=== PATIENT | male | born 1945 | race Caucasian/White ===

== ENCOUNTER 2022-09-19 07:18 | Observation (INO) | payer MEDICARE, BC ==
[2022-09-19] MEDS ORDERED: NALOXONE 0.4 MG/ML 1 ML VIAL IV PRN (09:54)
--- NOTE | 2022-09-19 09:54 | ED ---
Seizure HPI - General Chief Complaint: Seizure Stated Complaint: Seizure Time Seen by Provider: 09/19/22 07:22 Source: EMS Mode of arrival: EMS Limitations: no limitations - History of Present Illness Initial Comments: Patient presents to the emergency department after reported seizure last night. He was seen at another hospital. His workup was unremarkable. He was sent here for a neurology evaluation. Patient currently denies any chest or belly or back pain. He has no nausea or vomiting. He has no lightheadedness or dizziness. - Related Data Allergies Allergy/AdvReac Type Severity Reaction Status Date / Time No Known Allergies Allergy Verified 09/19/22 07:31 Review of Systems ROS Statement: Those systems with pertinent positive or pertinent negative responses have been documented in the HPI. ROS Other: All systems not noted in ROS Statement are negative. Past Medical History Past Medical History: Prostate Disorder History of Any Multi-Drug Resistant Organisms: None Reported Past Surgical History: Orthopedic Surgery Past Psychological History: No Psychological Hx Reported Smoking Status: Former smoker Past Alcohol Use History: Occasional Past Drug Use History: None Reported General Exam Limitations: no limitations General appearance: alert, in no apparent distress Head exam: Present: atraumatic, normocephalic, normal inspection Eye exam: Present: normal appearance, PERRL, EOMI. Absent: scleral icterus, conjunctival injection, periorbital swelling ENT exam: Present: normal exam, mucous membranes moist Neck exam: Present: normal inspection. Absent: tenderness, meningismus, lymphadenopathy Respiratory exam: Present: normal lung sounds bilaterally. Absent: respiratory distress, wheezes, rales, rhonchi, stridor Cardiovascular Exam: Present: regular rate, normal rhythm, normal heart sounds. Absent: systolic murmur, diastolic murmur, rubs, gallop, clicks GI/Abdominal exam: Present: soft, normal bowel sounds. Absent: distended, tenderness, guarding, rebound, rigid Extremities exam: Present: normal inspection, full ROM, normal capillary refill. Absent: tenderness, pedal edema, joint swelling, calf tenderness Back exam: Present: normal inspection Neurological exam: Present: alert, oriented X3, CN II-XII intact Psychiatric exam: Present: normal affect, normal mood Skin exam: Present: warm, dry, intact, normal color. Absent: rash Course Vital Signs 09/19/22 07:25 Temperature 97.6 F Pulse Rate 66 Respiratory 18 Rate Blood Pressure 138/81 O2 Sat by Pulse 95 Oximetry Medical Decision Making - Medical Decision Making Patient presents after a seizure at another facility. I reviewed the external electronic medical records from the other facility which show the patient had normal labs and a normal head CT. I had a discussion regarding the patient with neurology. I reviewed the labs and the outside facility which were all normal. Patient has remained symptom-free in the emergency department. Patient will be admitted for observation. Was pt. sent in by a medical professional or institution (TERRANCE [employer], BLUE LINE OPERATOR, urgent care, hospital, or custodial...) When possible be specific @ -[facility] Did you speak to anyone other than the patient for history (EMS, parent, family, police, friend...)? What history was obtained from this source @ -Patient's Did you review nursing and triage notes (agree or disagree)? Why? @ -[I reviewed and agree with nursing and triage notes] Were old charts reviewed (outside hosp., previous admission, EMS record, old EKG, old radiological studies, urgent care reports/EKG's, custodial records)? Report findings @ -I reviewed the labs and imaging from the outside hospital. Differential Diagnosis (chest pain, altered mental status, abdominal pain women, abdominal pain men, vaginal bleeding, weakness, fever, dyspnea, syncope, headache, dizziness, GI bleed, back pain, seizure, CVA, palpatations, mental health)? @ -[not applicable] EKG interpreted by me (3pts min.). @ -[As above] X-rays interpreted by me (1pt min.). @ -[None done] CT interpreted by me (1pt min.). @ -[None done] U/S interpreted by me (1pt. min.). @ -[None done] What testing was considered but not performed or refused? (CT, X-rays, U/S, labs)? Why? @ -[None] What meds were considered but not given or refused? Why? @ -[None] Did you discuss the management of the patient with other professionals (professionals i.e. TERRANCE Bang, BLUE LINE OPERATOR, lab, RT, psych nurse, child protective services social worker, chief console operator, teacher, court collections officer, caseworker)? Give summary @ -[No] Was smoking cessation discussed for >3mins.? @ -[No] Was critical care preformed (if so, how long)? @ -[No] Were there social determinants of health that impacted care today? How? (Homelessness, low income, unemployed, alcoholism, drug addiction, transportation, low edu. Level, literacy, decrease access to med. care, retirement, rehab)? @ -[No] Was there de-escalation of care discussed even if they declined (Discuss DNR or withdrawal of care, Hospice)? DNR status @ -[No] What co-morbidities impacted this encounter? (DM, HTN, Smoking, COPD, CAD, Cancer, CVA, ARF, Chemo, Hep., AIDS, mental health diagnosis, sleep apnea, morbid obesity)? @ -[None] Was patient admitted / discharged? Hospital course, mention meds given and route, prescriptions, significant lab abnormalities, going to OR and other pertinent info. @ -Patient has remained symptom-free in the emergency department. He will be admitted to the hospital for observation. Undiagnosed new problem with uncertain prognosis? @ -[No] Drug Therapy requiring intensive monitoring for toxicity (Heparin, Nitro, Insulin, Cardizem)? @ -[No] Were any procedures done? @ -[No] Diagnosis/symptom? @ -[default] Acute, or Chronic, or Acute on Chronic? @ -[default] Uncomplicated (without systemic symptoms) or Complicated (systemic symptoms)? @ -[default] Side effects of treatment? @ -[No] Exacerbation, Progression, or Severe Exacerbation? @ -[No] Poses a threat to life or bodily function? How? (Chest pain, USA, NM, pneumonia, PE, COPD, DKA, ARF, appy, cholecystitis, CVA, Diverticulitis, Homicidal, Suicidal, threat to staff... and all critical care pts) @ -[No] Disposition Clinical Impression: New onset seizure Disposition: ADMITTED IP TO THIS HOSP Instructions (If sedation given, give patient instructions): Seizure/Epilepsy Discharge Instructions & Follow-Up Is patient prescribed a controlled substance at d/c from ED?: No Referrals: Garret Ferrara NPC [Family Provider] - 1-2 days
--- NOTE | 2022-09-19 12:37 | P.CNNES ---
History of Present Illness Consult date: 09/19/22 Requesting physician: Serafin Garcia Reason for Consult: seizure History of Present Illness: This is a 76-year-old gentleman who was transferred from [facility] to our emergency department because of the seizure-like activity. History is obtained predominantly from the patient's was at bedside. According to the she stated that around 2 AM today she woke up and from the abnormal noises of her was sleeping next to her. Then she noticed that he was shaken throughout all extremity and the episode lasted for 30 seconds to 1 minute. She did not notice any foaming around the mouth. She did notice that the some bleeding is coming out of his mouth. After the episodes he was confused and it took a prolonged period of time for him to regain consciousness. She denied that he had any urinary or bowel incontinence. No prior history of seizures. According to the patient he denies of any headache but he feels a little bit off. Denies of any focal weakness, numbness, any visual disturbance. She denies of any fevers. No family history of seizures. Denies any history of stroke. The he socially drinks alcohol. No further seizures since the episode earlier today. It seems that the patient yesterday had a few episode of feeling off but denies any passing episodes in the episodes were very brief but denies any passing out episode urinary or bowel incontinence. At outside facility is seems the patient had the CT of the head which was unremarkable it's reported. Also had lab work CBC as well as comprehensive metabolic panel and the sugar and electrolytes was within known normal limits and did not appear that as sodium, calcium or other electrolyte provoked a seizure. No leukocytosis. No reactive CBC or chemistry. Review of Systems Review of system: The 12 point system was reviewed and apparent positive and negative per HPI. Past Medical History Past Medical History: Prostate Disorder History of Any Multi-Drug Resistant Organisms: None Reported Past Surgical History: Orthopedic Surgery Past Psychological History: No Psychological Hx Reported Smoking Status: Former smoker Past Alcohol Use History: Occasional Past Drug Use History: None Reported Medications and Allergies Home Medications Medication Instructions Recorded Confirmed Type Atorvastatin [Lipitor] 40 mg PO DAILY 09/19/22 09/19/22 History [place]-3/Dha/Epa/Fish Oil [Fish Oil 1 cap PO BID 09/19/22 09/19/22 History 1,000 mg Softgel] Tamsulosin [Flomax] 0.4 mg PO DAILY 09/19/22 09/19/22 History Vit C/E/Zn/Coppr/Lutein/Zeaxan 1 cap PO BID 09/19/22 09/19/22 History [Preservision Areds 2 Softgel] flaxseed oiL [[place]-3 Flaxseed Oil] 1,000 mg PO DAILY 09/19/22 09/19/22 History Allergies Allergy/AdvReac Type Severity Reaction Status Date / Time No Known Allergies Allergy Verified 09/19/22 10:21 Physical Examination - Vital Signs Vital Signs: Vital Signs Temp Pulse Resp BP Pulse Ox 09/19/22 07:25 97.6 F 66 18 138/81 95 Intake and Output 09/18/22 09/19/22 09/19/22 22:59 06:59 14:59 Other: Weight 81.647 kg GENERAL: The patient is lying in bed and is not in acute distress. CHEST: The heart rate is regular rate rhythm. No murmurs to auscultation. LUNG: Clear to auscultation bilaterally no wheezing noted throughout. Not labored breathing. ABDOMEN/GI: Bowel sounds present in all 4 quadrants. No tenderness to palpation throughout. NEUROLOGICAL: Higher mental function: The patient is awake, alert, oriented to self, place and time. Patient is following commands. No aphasia and no neglect. Cranial nerves: The pupils are round, equal and reactive to light and accommodation. Visual au are full to confrontation throughout. Extraocular movement is intact no nystagmus is noted. Facial sensation is normal to touch throughout. The facial strength is normal throughout. Hearing is normal bilaterally to hand rub. Tongue is midline and moved [id number] without any difficulty. No dysarthria is noted. Shoulder shrug is normal bilaterally. Motor: Gait is normal. The strength is 5 over 5 throughout. Normal tone and bulk. Cerebellum: Normal finger to nose bilaterally. Sensation: Sensation is normal to touch throughout. Reflexes (right/left): 2+ throughout. Plantars are normal bilaterally. Assessment and Plan Assessment: New onset seizure (had seizure-like activity 30 seconds to 1 minutes with post- ictal confusion). Plan: MRI Brain w/ and w/o and EEG is ordered by ED team and is pending. I will not start the patient on antiepileptic drug unless imaging and MRI reveal other reason to start antiepiletic drug. Also patient had one clear seizure for now at home. Every 4 hours neuro checks Placed on seizure precautions seizure pads Per the [facility] because of the seizure, patient avoid driving for 6 month until Z seizure-free, avoid height, avoid swimming unassisted or using heavy machinery. We'll defer the rest of the medical management to primary team Plan discussed with the patient and his was at bedside as well as a son. Thank you for consultation Time with Patient: Greater than 30
--- NOTE | 2022-09-19 13:31 | MR ---
EXAMINATION TYPE: MR brain wo/w con DATE OF EXAM: 09/19/2022 1:11 PM CLINICAL INDICATION:Male, 76 years old with history of new seizure; COMPARISON: None TECHNIQUE: Multi planar, multi sequence imaging was performed through the brain including: T1, T2, In version recovery, susceptibility weighted imaging and gradient echo imaging and Diffusion weighted im aging. The patient was then given intravenous contrast and multi planar, T1 fat-saturation images wer e obtained. IV Contrast: 8ml cc Gadavist FINDINGS: Left frontal lobe serpiginous vessels coalesce near the skull vertex in the frontal lobe consistent w ith developmental venous anomaly. The ventricular system, basal cisterns appear unremarkable. Diffusion-weighted imaging shows no evide nce of restricted diffusion to suggest acute/subacute infarct. Intracranial arterial flow voids are m aintained. Midline structures show no abnormality. Scattered foci of high T2 signal intensity are see n within the periventricular white matter. After administration of gadolinium, no abnormal enhancemen t is seen. The bone marrow signal is within normal limits. Paranasal sinuses and mastoid air cells: Mild scattered paranasal sinus disease. Visualized orbits: Orbital contents are intact. IMPRESSION: 1. Left frontal lobe developmental venous anomaly. 2. No evidence of intracranial mass, acute/subacute infarct, or abnormal enhancement. 3. Nonspecific white matter changes, likely related to small vessel ischemic disease
[2022-09-19] MEDS ORDERED: ALPRAZolam 0.25 MG TAB PO PRN (14:08)
[2022-09-19] MEDS ORDERED: MAG HYDROX/AL HYDROX/SIMETH 30 ML CUP PO PRN (14:08)
[2022-09-19] MEDS ORDERED: MELATONIN 3 MG TABLET PO PRN (14:08)
[2022-09-19] MEDS ORDERED: ONDANSETRON 4 MG/2 ML VIAL IVP PRN (14:08)
[2022-09-19] MEDS ORDERED: LACTULOSE 20 GM/30 ML CUP PO PRN (14:08)
[2022-09-19] MEDS ORDERED: ACETAMINOPHEN TAB 325 MG TAB PO PRN (14:08)
[2022-09-19] MEDS: ENOXAPARIN 40 MG/0.4 ML SYRINGE SQ SCH (14:30)
--- NOTE | 2022-09-19 19:38 | P.HPIM ---
History of Present Illness H&P Date: 09/19/22 Chief Complaint: New-onset seizure This is a pleasant 76-year-old patient who follows with Dr. Keith Ferrara. History is obtained by the at the bedside. Chronic stable medical conditions include BPH, hyperlipidemia, ostomy that is. Patient other active. Patient was initially brought in from home to [facility]. There are in bed when patient started shaking tremors altered mentation and bit his tongue. Last for about 30 seconds. The called EMS. Patient was taken to the ER at [facility]. Computed tomography scan of the head checks x-ray alcohol level etc. were all negative. Patient was transferred here for neurological workup. Patient was post ictal at [facility]. Tired this morning. No history of alcoholism. No history of head injury or prior seizure activity. Review of systems: GEN.: Tired EYES: None HEENT: None NECK: None RESPIRATORY: None CARDIOVASCULAR: None GASTROINTESTINAL: None GENITOURINARY: None MUSCULOSKELETAL: Some joint pains LYMPHATICS: None HEMATOLOGICAL: None PSYCHIATRY: None NEUROLOGICAL: As above Past medical history to include: BPH, hyperlipidemia, osteoarthritis Social history: . 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 Former smoker. Alcohol occasionally. Physical examination: VITAL SIGNS: 97.6, 50, 18, 145/90, 99% room air GENERAL: BMI 26.6, laying in bed comfortable. EYES: Pupils equal. Conjunctiva normal. HEENT: External appearance of nose and ears normal, oral cavity grossly normal. NECK: JVD not raised; masses not palpable. HEART: First and second heart sounds are normal; no edema. LUNGS: Respiratory rate normal; clear to auscultation. ABDOMEN: Soft, nontender, liver spleen not palpable, no masses palpable. PSYCH: Alert and oriented x3; mood and affect normal. MUSCULOSKELETAL:No Clubbing/cyanosis;muscles-grossly intact. Evidence of OA NEUROLOGICAL: Cranial nerves grossly intact; no facial asymmetry, power and sensation grossly intact. LYMPHATICS: No lymph nodes palpable in the axilla and neck INVESTIGATIONS, reviewed in the clinical context: Lab work from [facility]: White count 8.6 hemoglobin 13.4 platelets 293 sodium 142 potassium 4.1 BUN 24 creatinine 0.9 Computed tomography scan of the head negative Chest x-ray negative Alcohol less than 10, LFTs normal, UA negative Influenza type A/diabetes/RSV/COVID-19: Not detected Assessment and plan: -New onset of generalized tonic-clonic seizure in a patient though prior history of head injury, no prior seizure or precipitating reason. Neuro checks. EEG. MRI of the brain. Neurology consulted. -BPH Flomax -Hyperlipidemia Lipitor -Primary osteoarthritis Tylenol when necessary -Full code Care was discussed with the patient. EEG. MRI. Seizure precautions. Resume home medications. Past Medical History Past Medical History: Prostate Disorder History of Any Multi-Drug Resistant Organisms: None Reported Past Surgical History: Orthopedic Surgery Past Psychological History: No Psychological Hx Reported Smoking Status: Former smoker Past Alcohol Use History: Occasional Past Drug Use History: None Reported Medications and Allergies Home Medications Medication Instructions Recorded Confirmed Type Atorvastatin [Lipitor] 40 mg PO DAILY 09/19/22 09/19/22 History [place]-3/Dha/Epa/Fish Oil [Fish Oil 1 cap PO BID 09/19/22 09/19/22 History 1,000 mg Softgel] Tamsulosin [Flomax] 0.4 mg PO DAILY 09/19/22 09/19/22 History Vit C/E/Zn/Coppr/Lutein/Zeaxan 1 cap PO BID 09/19/22 09/19/22 History [Preservision Areds 2 Softgel] flaxseed oiL [[place]-3 Flaxseed Oil] 1,000 mg PO DAILY 09/19/22 09/19/22 History Allergies Allergy/AdvReac Type Severity Reaction Status Date / Time No Known Allergies Allergy Verified 09/19/22 10:21 Physical Exam Vitals: Vital Signs Temp Pulse Resp BP Pulse Ox 09/19/22 07:25 97.6 F 66 18 138/81 95 Intake and Output 09/18/22 09/19/22 09/19/22 22:59 06:59 14:59 Other: Weight 81.647 kg
[2022-09-19] MEDS: VIT A,C & E-LUTEIN-MINERALS 1 EACH TAB PO SCH (20:06)
--- NOTE | 2022-09-19 22:32 | EEG ---
ELECTROENCEPHALOGRAM REPORT CLINICAL HISTORY: This is a 76-year-old gentleman with new onset seizure-like activity witnessed by at home. The video EEG is obtained to evaluate for seizure epileptiform activity. RELEVANT MEDICATIONS: The patient is not on any antiepileptic drug. EEG TYPE: A routine 21-channel EEG is performed with video using the 10/20 electrode placement system. DESCRIPTION: Wakefulness and drowsiness are obtained. During awake state, the posterior-dominant rhythm consists of [id number] voltage of 8 to 8.5 hertz activity that is well modulated, well sustained. There is no physiological stage 2 sleep architecture seen. There is no focal slowing. Interictal and ictal is none. ACTIVATION PROCEDURE: Photic stimulation did not evoke a posterior driving response. There is no abnormality during the photic stimulation. Hyperventilation is not performed. CLINICAL INTERPRETATION: This is a normal routine EEG. There is no focal slowing, epileptiform discharge, or seizure on the EEG. A normal routine EEG does not rule out underlying epilepsy. Clinical correlation is recommended. MMSANJANA / CHUYITAN: [id number] /
[2022-09-20] MEDS ORDERED: ATORVASTATIN 40 MG TAB PO SCH (09:00)
[2022-09-20] MEDS ORDERED: TAMSULOSIN 0.4 MG CAP.ER.24H PO SCH (09:00)
[2022-09-20] MEDS: VIT A,C & E-LUTEIN-MINERALS 1 EACH TAB PO SCH (09:56)
[2022-09-20] MEDS: ENOXAPARIN 40 MG/0.4 ML SYRINGE SQ SCH (09:57)
[2022-09-20 10:09] LABS: ALT 20 U/L (4-49); AST 29 U/L (17-59); African American GFR (CKD) >90 (>60 ml/min/1.73 sqM); Albumin 3.6 g/dL (3.5-5.0); Albumin/Globulin Ratio 1.3; Alkaline Phosphatase 81 U/L (38-126); Anion Gap 6 mmol/L; Blood Urea Nitrogen 17 mg/dL (9-20); Calcium 8.5 mg/dL (8.4-10.2); Carbon Dioxide 25 mmol/L (22-30); Chloride 109 mmol/L (98-107); Globulin 2.7 g/dL; Glucose 113 mg/dL (74-99); Non-African American GFR(CKD) 84 (>60 ml/min/1.73 sqM); Potassium 3.8 mmol/L (3.5-5.1); Sodium 140 mmol/L (137-145); Total Protein 6.3 g/dL (6.3-8.2)
[2022-09-20 10:14] VITALS: BP 126/68; PULSE 68; RESP 16; TEMP 98
[2022-09-20] MEDS ORDERED: levETIRAcetam 500 MG TAB PO SCH (10:15)
--- NOTE | 2022-09-20 14:17 | CT ---
EXAMINATION TYPE: CT angio head neck CT DLP: 1526.70 mGycm, Automated exposure control for dose reduction was used. DATE OF EXAM: 09/20/2022 2:05 PM COMPARISON: MR brain 09/19/2022. CLINICAL INDICATION:Male, 76 years old with history of seizure. Arterial/venous anomaly, seizure. A rterial/venous anomaly TECHNIQUE: Axially acquired helical CT angiogram of the head and neck was obtained with contrast. Axi al images are supplemented with 3D reconstructions which were post-processed at an independent [facility]st [facility]. NASCET criteria used. Contrast used:65 mL of Isovue 370 without and with IV Contrast, Oral contrast used: None. FINDINGS: CTA HEAD: No evidence of acute intracranial hemorrhage, mass effect, or midline shift. The ventricles, sulci, a nd cisterns are unremarkable. The visualized portions of the internal carotid arteries, middle cerebral arteries, anterior cerebral arteries, and posterior cerebral arteries are patent. The basilar and vertebral arteries are patent. Developmental venous normally within the left frontal lobe as seen on prior MRI. CTA NECK: Right Carotid System: The common carotid artery and external carotid artery are patent. The carotid bifurcation demonstrate s no evidence of hemodynamically significant stenosis. The remaining portions of the internal carotid artery demonstrate normal size without significant narrowing. Left Carotid System: The common carotid artery and external carotid artery are patent. The carotid bifurcation demonstrate s no evidence of hemodynamically significant stenosis. The remaining portions of the internal carotid artery demonstrate normal size without significant narrowing. Vertebral arteries are patent without evidence hemodynamically significant stenosis. There is a three-vessel aortic arch. The origins of the great vessels are patent. No evidence of hemo dynamically significant stenosis. Upper thorax: IMPRESSION: 1. No evidence of dissection of the cervical internal carotid arteries or vertebral arteries or any e vidence of significant stenosis at the carotid bifurcations. 2. No evidence of intracranial high-grade stenosis or intracranial aneurysm. 3. Left frontal lobe development of venous anomaly.
--- NOTE | 2022-09-20 15:16 | P.PN ---
Subjective Progress Note Date: 09/20/22 The patient is seen at bedside and he is accompanied with his feel like his dome better. No further seizure-like activity. Patient feels he is doing better and denies any headache any focal deficit. Objective - Vital Signs Vital signs: Vital Signs Temp 98.0 F 09/20/22 08:25 Pulse 68 09/20/22 08:25 Resp 16 09/20/22 08:25 BP 126/68 09/20/22 08:25 Pulse Ox 92 L 09/20/22 08:25 FiO2 Intake & Output 09/19/22 09/20/22 09/20/22 18:59 06:59 18:59 Intake Total 120 Balance 120 Weight 81.647 kg Intake: Oral 120 Other: # Voids 1 - Exam GENERAL: The patient is lying in bed and is not in acute distress. NEUROLOGICAL: Higher mental function: The patient is awake, alert, oriented to self, place and time. Patient is following commands. No aphasia and no neglect. Cranial nerves: The pupils are round, equal and reactive to light and accommodation. Visual au are full to confrontation throughout. Extraocular movement is intact no nystagmus is noted. Facial sensation is normal to touch throughout. The facial strength is normal throughout. Hearing is normal bilaterally to hand rub. Tongue is midline and moved [id number] without any difficulty. No dysarthria is noted. Shoulder shrug is normal bilaterally. Motor: The strength is 5 over 5 throughout. Normal tone and bulk. Cerebellum: Normal finger to nose bilaterally. Sensation: Sensation is normal to touch throughout. Reflexes (right/left): 2+ throughout. Plantars are normal bilaterally. SOME OF THE WORK-UP DURING THIS HOSPITAL VISIT CONSISTED OF: Routine EEG is normal. MRI the brain is reported as left frontal tlobe developmental venous anomaly. No evidence of intracranial mass, acute/subacute infarct or abnormal enh ancement. Nonspecific white matter changes likely related to small vessel ischemic disease. CT angiography of the head and neck is reported as no evidence of dissection of the cervical internal carotid artery or vertebral artery or any evidence of significant stenosis at the carotid bifurcation. No evidence of intracranial high-grade stenosis or intracranial aneurysm. Left frontal lobe development of venous anomaly. - Labs CBC & Chem 7: 09/20/22 09:45 Labs: Abnormal Lab Results - Last 24 Hours (Table) 01/19/23 Range/Units 09:45 Chloride 109 H (98-107) mmol/L Glucose 113 H (74-99) mg/dL Assessment and Plan Assessment: New onset seizure (had seizure-like activity 30 seconds to 1 minutes with post- ictal confusion). Left frontal developmental venous anomaly seen on CTA and MRI Brain Plan: Left frontal developmental venous anomaly seen on CTA and MRI Brain. I recommend patient to follow-up with neurosurgeon as outpatient within 1-2 weeks if possible. The patient family has requested that patient be started on antiepileptic drug as prophylaxis and he is in agreement and not wait for further seizures. I started him on Keppra 500mg 1 tab bid and notified them of side-effects of medication. Every 4 hours neuro checks Placed on seizure precautions seizure pads Per the [facility] because of the seizure, patient avoid driving for 6 month until Z seizure-free, avoid height, avoid swimming unassisted or using heavy machinery. We'll defer the rest of the medical management to primary team Upon discharge the patient needs to follow-up with a neurologist within 1-2 weeks Plan discussed with the patient and his as well nurse. No further neurological work-up. Time with Patient: Less than 30
--- NOTE | 2022-09-21 18:59 | P.DS ---
Providers Date of admission: 09/19/22 09:54 Expected date of discharge: 09/20/22 Attending physician: Baltazar Gaxiola Consults: 09/19/22 09:55 Consult Physician Routine Consulting Provider: Wilian Cates Consult Reason/Comments: seizure Do you want consulting provider notified?: Already Contacted Primary care physician: [facility] Course: Chief Complaint: New-onset seizure This is a pleasant 76-year-old patient who follows with Dr. Keith Ferrara. History is obtained by the at the bedside. Chronic stable medical conditions include BPH, hyperlipidemia, ostomy that is. Patient other active. Patient was initially brought in from home to [facility]. There are in bed when patient started shaking tremors altered mentation and bit his tongue. Last for about 30 seconds. The called EMS. Patient was taken to the ER at [facility]. Computed tomography scan of the head checks x-ray alcohol level etc. were all negative. Patient was transferred here for neurological workup. Patient was post ictal at [facility]. Tired this morning. No history of alcoholism. No history of head injury or prior seizure activity. 09/21/2022: Seizure care was discussed length with the patient has and family at the bedside. Questions answered. Also early discussed with Dr. Cates from urology. He has started the patient on Keppra. ED angiogram did show left frontal lobe developmental venous anomaly. No other abnormalities. Patient is to follow up with neurosurgery outpatient as per Dr. Cates from neurology. Questions answered. Seizure precautions discussed Discussion and discharge planning more than 35 minutes Past medical history to include: BPH, hyperlipidemia, osteoarthritis Social history: . 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 Former smoker. Alcohol occasionally. Physical examination: VITAL SIGNS: 98, 68, 8016, 1 26 x 68, 92% room air GENERAL: Comfortable EYES: Pupils equal. Conjunctiva normal. HEENT: External appearance of nose and ears normal, oral cavity grossly normal. NECK: JVD not raised; masses not palpable. HEART: First and second heart sounds are normal; no edema. LUNGS: Respiratory rate normal; clear to auscultation. ABDOMEN: Soft, nontender, liver spleen not palpable, no masses palpable. PSYCH: Alert and oriented x3; mood and affect normal. MUSCULOSKELETAL:No Clubbing/cyanosis;muscles-grossly intact. Evidence of OA INVESTIGATIONS, reviewed in the clinical context: CT angiogram of the brain. Left frontal lobe developmental venous anomaly. EEG: Negative for epilepsy activity Brain MRI: Left frontal lobe developmental venous anomaly. Lab work from [facility]: White count 8.6 hemoglobin 13.4 platelets 293 sodium 142 potassium 4.1 BUN 24 creatinine 0.9 Computed tomography scan of the head negative Chest x-ray negative Alcohol less than 10, LFTs normal, UA negative Influenza type A/diabetes/RSV/COVID-19: Not detected Assessment and plan: -New onset of generalized tonic-clonic seizure in a patient though prior history of head injury, no prior seizure or precipitating reason. Keppra 500 mg twice a day. Seizure precautions discussed. Follow-up with neurology outpatient. -Left frontal lobe developmental venous anomaly. Follow-up with neurosurgery outpatient. -BPH Flomax -Hyperlipidemia Lipitor -Primary osteoarthritis Tylenol when necessary -Full code Disposition: Home Plan - Discharge Summary Discharge Rx Participant: No New Discharge Prescriptions: New levETIRAcetam [Keppra] 500 mg PO Q12HR #60 tab Continue Atorvastatin [Lipitor] 40 mg PO DAILY Vit C/E/Zn/Coppr/Lutein/Zeaxan [Preservision Areds 2 Softgel] 1 cap PO BID Tamsulosin [Flomax] 0.4 mg PO DAILY [place]-3/Dha/Epa/Fish Oil [Fish Oil 1,000 mg Softgel] 1 cap PO BID No Action flaxseed oiL [[place]-3 Flaxseed Oil] 1,000 mg PO DAILY Discharge Medication List Atorvastatin [Lipitor] 40 mg PO DAILY 09/19/22 [History] [place]-3/Dha/Epa/Fish Oil [Fish Oil 1,000 mg Softgel] 1 cap PO BID 09/19/22 [History] Tamsulosin [Flomax] 0.4 mg PO DAILY 09/19/22 [History] Vit C/E/Zn/Coppr/Lutein/Zeaxan [Preservision Areds 2 Softgel] 1 cap PO BID 09/19/22 [History] flaxseed oiL [[place]-3 Flaxseed Oil] 1,000 mg PO DAILY 09/19/22 [History] levETIRAcetam [Keppra] 500 mg PO Q12HR #60 tab 09/20/22 [Rx] Follow up Appointment(s)/Referral(s): neuro-surgery, [Other] - 1 Week Garret Ferrara NPC [Family Provider] - 1-2 days Patient Instructions/Handouts: Seizure/Epilepsy Discharge Instructions & Follow-Up, New-Onset Seizure in Adults (DC) Activity/Diet/Wound Care/Special Instructions: seizure precaution-no driving till further notice Discharge Disposition: HOME SELF-CARE
== END 2022-09-20 16:47 | disposition home or self-care (01) ==
LOC: EC 07:18 → 6NMEDSUR 09:54
PROVIDERS: ADMIT Hospitalist; ATTEND Hospitalist
DX: G40.89 Other seizures (principal); Q28.3 Other malformations of cerebral vessels; N42.9 Disorder of prostate, unspecified; Z87.891 Personal history of nicotine dependence; N40.0 Benign prostatic hyperplasia without lower urinary tract symptoms; E78.5 Hyperlipidemia, unspecified; M19.91 Primary osteoarthritis, unspecified site; Z79.899 Other long term (current) drug therapy
CPT/HCPCS: 96372 ×2; 99285; 95816; 80053; 70496; 70498; 70553; G0378 ×2; J1650 ×2; Q9967; A9585

== ENCOUNTER 2024-03-16 11:03 | Inpatient (IN) | payer MEDICARE, BC ==
[2024-03-16] MEDS ORDERED: NITROGLYCERIN SL TABS 0.4 MG TAB SUBLINGUAL PRN (11:19)
[2024-03-16] MEDS: ASPIRIN 81 MG PO STA ×2 (11:30)
--- NOTE | 2024-03-16 11:30 | ED ---
Recheck HPI - General Chief Complaint: Chest Pain Stated Complaint: Chest pain Time Seen by Provider: 03/16/24 11:16 Source: patient, EMS, RN notes reviewed, old records reviewed Mode of arrival: EMS Limitations: no limitations - History of Present Illness Initial Comments: This 78-year-old male excepted in transfer from an outside facility for evaluati on regards to chest pain and shortness of breath weakness and not feeling well. Is excepted in transfer for chest pain observation MD Complaint: abnormal lab (Chest pain observation) -: days(s) Symptoms Since Prior Visit: no new symptoms Context: planned re-check Associated Symptoms: none - Related Data Home Medications Medication Instructions Recorded Confirmed Atorvastatin [Lipitor] 40 mg PO DAILY 09/19/22 09/19/22 [place]-3/Dha/Epa/Fish Oil [Fish Oil 1 cap PO BID 09/19/22 09/19/22 1,000 mg Softgel] Tamsulosin [Flomax] 0.4 mg PO DAILY 09/19/22 09/19/22 Vit C/E/Zn/Coppr/Lutein/Zeaxan 1 cap PO BID 09/19/22 09/19/22 [Preservision Areds 2 Softgel] flaxseed oiL [[place]-3 Flaxseed Oil] 1,000 mg PO DAILY 09/19/22 09/19/22 Previous Rx's Medication Instructions Recorded levETIRAcetam [Keppra] 500 mg PO Q12HR #60 tab 09/20/22 Allergies Allergy/AdvReac Type Severity Reaction Status Date / Time No Known Allergies Allergy Verified 03/16/24 11:12 Review of Systems ROS Statement: Those systems with pertinent positive or pertinent negative responses have been documented in the HPI. ROS Other: All systems not noted in ROS Statement are negative. Past Medical History Past Medical History: Prostate Disorder, Seizure Disorder History of Any Multi-Drug Resistant Organisms: None Reported Past Surgical History: Orthopedic Surgery Additional Past Surgical History / Comment(s): markers for macular degeneration Past Anesthesia/Blood Transfusion Reactions: No Reported Reaction Past Psychological History: No Psychological Hx Reported Smoking Status: Former smoker Past Alcohol Use History: Occasional Past Drug Use History: None Reported General Exam Limitations: no limitations General appearance: alert, in no apparent distress Head exam: Present: atraumatic, normocephalic, normal inspection Eye exam: Present: normal appearance, PERRL, EOMI. Absent: scleral icterus, conjunctival injection, periorbital swelling ENT exam: Present: normal exam, mucous membranes moist Neck exam: Present: normal inspection. Absent: tenderness, meningismus, lymphadenopathy Respiratory exam: Present: normal lung sounds bilaterally. Absent: respiratory distress, wheezes, rales, rhonchi, stridor Cardiovascular Exam: Present: regular rate, normal rhythm, normal heart sounds. Absent: systolic murmur, diastolic murmur, rubs, gallop, clicks GI/Abdominal exam: Present: soft, normal bowel sounds. Absent: distended, tenderness, guarding, rebound, rigid Extremities exam: Present: normal inspection, full ROM, normal capillary refill. Absent: tenderness, pedal edema, joint swelling, calf tenderness Back exam: Present: normal inspection Neurological exam: Present: alert, oriented X3, CN II-XII intact Psychiatric exam: Present: normal affect, normal mood Skin exam: Present: warm, dry, intact, normal color. Absent: rash Course Vital Signs 03/16/24 11:05 Temperature 97.6 F Pulse Rate 70 Respiratory 18 Rate Blood Pressure 136/72 O2 Sat by Pulse 96 Oximetry - Reevaluation(s) Reevaluation #1: 03/16/24 11:29 Medical records reviewed Reevaluation #2: 03/16/24 11:29 Patient symptoms unchanged Reevaluation #3: 03/16/24 11:29 Patient informed of results and questions answered Reevaluation #4: Was pt. sent in by a medical professional or institution (, PA, TOWN MANAGER, urgent care, hospital, or [facility]...) When possible be specific @ -no Did you speak to anyone other than the patient for history (EMS, parent, family, police, friend...)? What history was obtained from this source @ -no Did you review nursing and triage notes (agree or disagree)? Why? @ -agree Are old charts reviewed (outside hosp., previous admission, EMS record, old EKG, old radiological studies, urgent care reports/EKG's, [facility] records)? Report findings @ -yes Differential Diagnosis (chest pain, altered mental status, abdominal pain women, abdominal pain men, vaginal bleeding, weakness, fever, dyspnea, syncope, headache, dizziness, GI bleed, back pain, seizure, CVA, palpatations, mental health, musculoskeletal)? @ -prior EKG interpreted by me (3pts min.). @ -yes X-rays interpreted by me (1pt min.). @ -yes negative for acute disease CT interpreted by me (1pt min.). @ -no U/S interpreted by me (1pt. min.). @ -no What testing was considered but not performed or refused? (CT, X-rays, U/S, labs)? Why? @ -none What meds were considered but not given or refused? Why? @ -none Did you discuss the management of the patient with other professionals (professionals i.e. , PA, TOWN MANAGER, lab, RT, psych nurse, social group worker, black top paver operator, teacher, occupational health and safety officer, social work case manager)? Give summary @ -no Was smoking cessation discussed for >3mins.? @ -no Was critical care preformed (if so, how long)? @ -no Were there social determinants of health that impacted care today? How? (Homelessness, low income, unemployed, alcoholism, drug addiction, transportation, low edu. Level, literacy, decrease access to med. care, [facility], rehab)? @ -none Was there de-escalation of care discussed even if they declined (Discuss DNR or withdrawal of care, Hospice)? DNR status @ -no What co-morbidities impacted this encounter? (DM, HTN, Smoking, COPD, CAD, Cancer, CVA, ARF, Chemo, Hep., AIDS, mental health diagnosis, sleep apnea, morbid obesity)? @ -none Was patient admitted / discharged? Hospital course, mention meds given and route, prescriptions, significant lab abnormalities, going to OR and other pertinent info. @ - Undiagnosed new problem with uncertain prognosis? @ -no Drug Therapy requiring intensive monitoring for toxicity (Heparin, Nitro, Insulin, Cardizem)? @ -no Were any procedures done? @ -no Diagnosis/symptom? @ - Acute, or Chronic, or Acute on Chronic? @ -Acute Uncomplicated (without systemic symptoms) or Complicated (systemic symptoms)? @ -Complicated Side effects of treatment? @ -no Exacerbation, Progression, or Severe Exacerbation? @ -exacerbation Poses a threat to life or bodily function? How? (Chest pain, [place], [place], pneumonia, PE, COPD, DKA, ARF, appy, cholecystitis, CVA, Diverticulitis, Homicidal, Suicidal, threat to staff... and all critical care pts) @ -yes Reevaluation #5: Differential Chest Pain: Stable Angina, Unstable Angina, STEMI, NSTEMI Aortic Dissection, Pneumothorax, Musculoskeletal, Esophageal Spasm GERD, Cholecystitis, Pancreatitis, Zoster, this is not meant to be an all-inclusive list. - Consultations Consultation #1: With [facility] who agrees to admit this patient Medical Decision Making - Medical Decision Making 78 Male will be admitted for chest pain observation Disposition Clinical Impression: Chest pain Disposition: ADMITTED IP TO THIS HOSP Condition: Undetermined Is patient prescribed a controlled substance at d/c from ED?: No Referrals: Uche Casas MD [Primary Care Provider] - 1-2 days Time of Disposition: 11:30
[2024-03-16] MEDS: SODIUM CHLORIDE 0.9% 1,000 ML IV STA (11:42)
[2024-03-16] MEDS: MORPHINE SULFATE 4 MG/ML SYRINGE IV STA (11:43)
[2024-03-16] MEDS: NITROGLYCERIN OINT 1 INCH/GM PACKET TOPICAL STA (11:48)
[2024-03-16 12:18] LABS: INR 1.1 (<1.2); Partial Thromboplastin Time 37.3 sec (22.0-30.0); Prothrombin Time 11.7 sec (10.0-12.5)
[2024-03-16 12:20] LABS: Basophils % (A) 0 %; Eosinophils # (A) 0.1 k/uL (0-0.7); Eosinophils % (A) 0 %; HCT 41.1 % (39.0-53.0); HGB 13.6 gm/dL (13.0-17.5); Lymphocytes # (A) 0.6 k/uL (1.0-4.8); Lymphocytes % (A) 4 %; MCH 31.9 pg (25.0-35.0); MCHC 33.1 g/dL (31.0-37.0); MCV 96.3 fL (80.0-100.0); Mean Platelet Volume 7.9; Monocytes # (A) 0.5 k/uL (0-1.0); Monocytes % (A) 3 %; Neutrophils # (A) 13.4 k/uL (1.3-7.7); Neutrophils % (A) 92 %; Platelet Count 221 k/uL (150-450); RBC 4.27 m/uL (4.30-5.90); RDW 13.4 % (11.5-15.5); WBC 14.6 k/uL (3.8-10.6)
[2024-03-16 12:21] LABS: ALT 25 U/L (4-49); AST 36 U/L (17-59); African American GFR (CKD) >90 (>60 ml/min/1.73 sqM); Albumin 4.1 g/dL (3.5-5.0); Alkaline Phosphatase 90 U/L (38-126); Anion Gap 11 mmol/L; Blood Urea Nitrogen 18 mg/dL (9-20); Calcium 9.2 mg/dL (8.4-10.2); Carbon Dioxide 17 mmol/L (22-30); Chloride 110 mmol/L (98-107); Glucose 92 mg/dL (74-99); Magnesium 1.8 mg/dL (1.6-2.3); Non-African American GFR(CKD) >90 (>60 ml/min/1.73 sqM); Sodium 138 mmol/L (137-145); Total Bilirubin 1.3 mg/dL (0.2-1.3); Total Protein 6.8 g/dL (6.3-8.2)
[2024-03-16 12:29] LABS: NT-Pro-B-Type Natriuretic Pept 122 pg/mL
[2024-03-16] MEDS ORDERED: PANTOPRAZOLE 40 MG TABLET PO PRN (15:50)
[2024-03-16] MEDS: HEPARIN SOD,PORK IN 0.45% NACL 25,000 UNIT in 0.45% NACL 1 250ML.BAG IV SCH (16:53)
--- NOTE | 2024-03-16 17:09 | XR ---
EXAMINATION TYPE: XR chest 1V DATE OF EXAM: 03/16/2024 COMPARISON: NONE HISTORY: 78-year-old male difficulty in breathing, shortness of breath TECHNIQUE: Single frontal view of the chest is obtained. FINDINGS: The heart is borderline enlarged. Mild patchy bibasilar densities. No sizable pleural effu castro. IMPRESSION: heart size. Mild patchy bibasilar densities, probably atelectasis. Follow-up to exclude developing in filtrates if clinically indicated.
[2024-03-16] MEDS: MORPHINE SULFATE 4 MG/ML SYRINGE IV PRN (18:15)
[2024-03-16] MEDS: SERTRALINE 50 MG TAB PO SCH (21:55)
[2024-03-16] MEDS: levETIRAcetam 500 MG TAB PO SCH (21:55)
[2024-03-17 00:01] LABS: Appearance,Urine Clear (Clear); Bilirubin,Urine Negative (Negative); Blood,Urine Small (Negative); Color,Urine Light Yellow; Glucose,Urine (UA) Negative (Negative); Ketones,Urine Negative (Negative); Leukocyte Esterase,Urine Negative (Negative); Mucus,Urine Occasional /hpf; Nitrite,Urine Negative (Negative); PH, Urine 5.5 (5.0-8.0); Protein,Urine Negative (Negative); RBC,Urine 1 /hpf (0-5); Specific Gravity,Urine 1.017 (1.001-1.035); Urobilinogen,Urine <2.0 mg/dL (<2.0); WBC,Urine 3 /hpf (0-5)
--- NOTE | 2024-03-17 00:02 | P.HPIM ---
History of Present Illness H&P Date: 03/16/24 Chief Complaint: Chest pain Patient is a 78-year-old male with known history of seizure disorder, BPH, history of urinary retention, obstructive sleep apnea on CPAP, anxiety/d epression and prior history of smoking initially presented to [facility] due to complaints of chest pain. Patient states that he woke up this morning and felt mid retrosternal chest discomfort/pain and pressure like indigestion. [place] like burning and sharp pain. Patient also felt left shoulder pain and back pain is worse with shortness of breath. Denies any recent illnesses. No cough or sputum production. No fever no chills. Patient initially presented to [facility] where he had workup done including CBC BMP. Troponin x 1 negative. proBNP 66 and chest x-ray showed vascular congestion. Patient was given nitro sublingual followed by Nitropaste. Which seem to improve his symptoms. Initial EKG showed atrial fibrillation with controlled ventricular rate. Due to complaints of chest pain and shortness of breath patient was transferred to [facility] for further evaluation. He was also started on heparin drip at the facility. On admission chest x-ray showed cardiomegaly and mild patchy bibasilar densities possibly atelectasis. EKG showed sinus rhythm with intraventricular conduction delay. Laboratory test showed WBC 14.6 hemoglobin 13.6 and platelets 221, sodium 138 potassium 4.0 chloride 110 bicarb is 17 BUN 18 and creatinine 0.68 and blood sugar 92 liver enzymes are not elevated troponin x 3 negative proBNP 122 and albumin 4.1 Review of Systems Constitutional: Patient denies any fever or chills . No generalized weakness or weight loss. Abdomen: Patient denied nausea vomiting and diarrhea and abdominal pain. Cardiovascular: Patient denies any chest pain or short of breath no palpitations. Respiratory: patient denied any cough or sputum production. No shortness of breath Neurologic: Patient denied any numbness or tingling. no headache. Musculoskeletal: Patient denies any complaints of joint swelling or deformity. Skin: Negative Psychiatric: Negative Endocrine: No heat or cold intolerance. No recent weight gain. Genitourinary: No dysuria or hematuria. All other 14 point ROS negative except the above Past Medical History Past Medical History: Prostate Disorder, Seizure Disorder History of Any Multi-Drug Resistant Organisms: None Reported Past Surgical History: Orthopedic Surgery Additional Past Surgical History / Comment(s): markers for macular degeneration Past Anesthesia/Blood Transfusion Reactions: No Reported Reaction Past Psychological History: No Psychological Hx Reported Smoking Status: Former smoker Past Alcohol Use History: Occasional Past Drug Use History: None Reported Medications and Allergies Home Medications Medication Instructions Recorded Confirmed Type Atorvastatin [Lipitor] 40 mg PO DAILY 09/19/22 03/16/24 History Tamsulosin [Flomax] 0.4 mg PO DAILY 09/19/22 03/16/24 History Vit C/E/Zn/Coppr/Lutein/Zeaxan 1 cap PO BID 09/19/22 03/16/24 History [Preservision Areds 2 Softgel] Ascorbic Acid [Vitamin C] 1,000 mg PO HS 03/16/24 03/16/24 History Cholecalciferol (Vitamin D3) 50 mcg PO DAILY 03/16/24 03/16/24 History [Vitamin D3 (50 Mcg = 2000 Iu)] Flaxseed Oil 1,400 Mg 1,400 mg PO DAILY 03/16/24 03/16/24 History [place]-3/Dha/Epa/Fish Oil [Fish Oil 2 cap PO DAILY 03/16/24 03/16/24 History EC 1,200 mg Softgel] Omeprazole 20 mg PO DAILY PRN 03/16/24 03/16/24 History Pyridoxine HCl (Vitamin B6) 100 mg PO BID 03/16/24 03/16/24 History [Vitamin B-6] Sertraline HCl [Zoloft] 50 mg PO HS 03/16/24 03/16/24 History levETIRAcetam [Keppra] 500 mg PO BID 03/16/24 03/16/24 History Allergies Allergy/AdvReac Type Severity Reaction Status Date / Time No Known Allergies Allergy Verified 03/16/24 11:43 Physical Exam Vitals: Vital Signs Temp Pulse Resp BP Pulse Ox 03/16/24 14:21 61 16 112/60 94 L 03/16/24 12:41 74 18 121/69 97 03/16/24 11:05 97.6 F 70 18 136/72 96 Intake and Output 03/16/24 03/16/24 03/16/24 06:59 14:59 22:59 Other: Weight 82.554 kg PHYSICAL EXAMINATION: Patient is lying in the bed comfortably, no acute distress, awake alert and oriented.. HEENT: Normocephalic. Neck is supple. Pupils reactive. Nostrils clear. Oral cavity is moist. Neck reveals no JVD, carotid bruits, or thyromegaly. CHEST EXAMINATION: Trachea is central. Symmetrical expansion. Bibasilar diminished sounds otherwise lung au clear to auscultation and percussion. CARDIAC: Normal S1, S2 with no gallops. No murmurs ABDOMEN: Soft. Bowel sounds normal. No organomegaly. No abdominal bruits. Extremities: reveal no edema. No clubbing or cyanosis Neurologically awake, alert, oriented x3 with well-coordinated movements. No focal deficits noted Skin: No rash or skin lesions. Psychiatric: Coperative. Nonsuicidal Musculoskeletal: No joint swelling or deformity. Normal range of motion. Results CBC & Chem 7: 03/16/24 11:35 03/16/24 11:35 Labs: Abnormal Lab Results - Last 24 Hours (Table) 03/16/24 03/16/24 03/16/24 Range/Units 11:35 11:35 11:35 WBC 14.6 H (3.8-10.6) k/uL RBC 4.27 L (4.30-5.90) m/uL Neutrophils # 13.4 H (1.3-7.7) k/uL Lymphocytes # 0.6 L (1.0-4.8) k/uL APTT 37.3 H (22.0-30.0) sec Chloride 110 H (98-107) mmol/L Carbon Dioxide 17 L (22-30) mmol/L Thrombosis Risk Factor Assmnt - DVT/VTE Prophylaxis DVT/VTE Prophylaxis: Pharmacologic Prophylaxis ordered Assessment and Plan Assessment: New onset atrial fibrillation Atypical chest pain ruled out ACS. Seizure disorder on antiepileptic medications Hyperlipidemia BPH Obstructive sleep apnea on CPAP at home Prior history of smoking DVT prophylaxis patient is already on heparin drip Plan: Patient will be continued on telemonitoring. Serial EKG and troponin x 3 negative. Continue with heparin drip. Heart rate is controlled. Cardiology was consulted for evaluation. Patient was started back on home medications including Keppra and Flomax. Continue with aspirin and statin send lipid profile was ordered. Due to leukocytosis chest x-ray and UA was ordered due to infection. Continue to follow closely. Discussed with the patient and his family at great bedside in detail. Time with Patient: Greater than 30
[2024-03-17] MEDS: TAMSULOSIN 0.4 MG CAP.ER.24H PO SCH (08:35)
[2024-03-17] MEDS: ATORVASTATIN 80 MG TAB PO SCH (08:35)
[2024-03-17] MEDS: ASPIRIN 325 MG TAB PO SCH (08:35)
[2024-03-17] MEDS ORDERED: HEPARIN SODIUM 1,000 UN/ML (10ML VL) IVP PRN (08:55)
[2024-03-17] MEDS: HEPARIN SODIUM 1,000 UN/ML (10ML VL) IV PRN (09:11)
[2024-03-17] MEDS ORDERED: CAFFEINE CITRATE 60 MG/3 ML VIAL IV PRN (09:47)
[2024-03-17] MEDS ORDERED: REGADENOSON 0.4 MG/5 ML SYRINGE IV PRN (09:47)
[2024-03-17] MEDS ORDERED: AMINOPHYLLINE 500 MG/20 ML VIAL IV PRN (09:47)
[2024-03-17 10:56] LABS: Chol/HDL Ratio 2.68 Ratio
[2024-03-17 10:57] LABS: BUN/Creat Ratio 15.38 Ratio (12.00-20.00); Blood Urea Nitrogen 12.3 mg/dL (9.0-27.0); Calcium 8.5 mg/dL (8.7-10.3); Carbon Dioxide 20.8 mmol/L (21.6-31.8); Chloride 105 mmol/L (96-109); Glucose 109 mg/dL (70-110); LDL Cholesterol,Calculated 58.5 mg/dL (0.0-131.0); Potassium 3.6 mmol/L (3.5-5.5); Sodium 139 mmol/L (135-145)
[2024-03-17 11:16] LABS: Basophils # (A) 0.03 X 10*3/uL (0.00-0.10); Basophils % (A) 0.3 %; Eosinophils # (A) 0.04 X 10*3/uL (0.04-0.35); Eosinophils % (A) 0.3 %; HCT 37.7 % (39.6-50.0); HGB 12.9 g/dL (13.0-17.0); Lymphocytes # (A) 0.73 X 10*3/uL (0.90-5.00); Lymphocytes % (A) 6.2 %; MCH 31.8 pg (27.0-32.0); MCHC 34.2 g/dL (32.0-37.0); MCV 92.9 FL (80.0-97.0); Mean Platelet Volume 10.3 FL (9.5-12.2); Monocytes % (A) 6.8 %; NRBC Per 100 WBC 0 X 10*3/uL (0.00-0.01); Neutrophils # (A) 10.08 X 10*3/uL (1.80-7.70); Neutrophils % (A) 86.1 %; Platelet Count 228 X 10*3/uL (140-440); RBC 4.06 X 10*6/uL (4.40-5.60); RDW 13.9 % (11.5-14.5); WBC 11.72 X 10*3/uL (4.50-10.00)
--- NOTE | 2024-03-17 12:13 | P.CRDCN ---
History of Present Illness History of present illness: HISTORY OF PRESENTING ILLNESS This is a pleasant 78-year-old with past medical history significant for BPH, seizure disorder, urinary retention, obstructive sleep apnea, previous tobacco abuse since quit. Patient initially presented to [facility] with episode of chest discomfort and indigestion feeling. This has been ongoing for the last 3 days since . He states symptoms have been ongoing and not getting any better and therefore presented to emergency department. He does admit that he takes in a deep breath and will get somewhat worse. Normally is very active walking approximately 4 miles a day and has not been able to do this recently secondary to chest pain. Is not palpable with palpation and does radiated somewhat to his neck and his shoulder. He admits to some shortness breath. No nausea or diaphoresis. No recent changes in medications. EKG shows normal sinus rhythm with frequent PACs and lax axis deviation, poor R-wave progression and no significant ST or T-wave abnormalities. REVIEW OF SYSTEMS At the time of my exam: CONSTITUTIONAL: Denies fever or chills. CARDIOVASCULAR: +chest pain, +shortness of breath, no orthopnea, PND or palpitations. RESPIRATORY: Denies cough. GASTROINTESTINAL: Denies abdominal pain, diarrhea, constipation, nausea or vomiting. MUSCULOSKELETAL: Denies myalgias. NEUROLOGIC: Denies numbness, tingling or weakness. ENDOCRINE: Denies fatigue, weight change, polydipsia or polyurina. GENITOURINARY: Denies burning, hematuria or urgency with micturation. HEMATOLOGIC: Denies history of anemia or bleeding. PHYSICAL EXAMINATION Vital signs reviewed. CONSTITUTIONAL: No apparent distress. HEENT: Head is normocephalic. Pupils are equal, round. Sclerae anicteric. Mucous membranes of the mouth are moist. No JVD. No carotid bruit. CHEST EXAMINATION: Lungs are clear to auscultation. No chest wall tenderness is noted on palpation or with deep breathing. HEART EXAMINATION: Regular rate and rhythm. S1, S2 heard. No murmurs, gallops or rub. ABDOMEN: Soft, nontender. Positive bowel sounds. EXTREMITIES: 2+ peripheral pulses, no lower extremity edema and no calf tenderness. NEUROLOGIC EXAMINATION: Patient is awake, alert and oriented x3. ASSESSMENT atypical chest pain Shortness breath Reported atrial fibrillation by prior EKG, no atrial fibrillation only sinus rhythm with PACs Obstructive sleep apnea Previous tobacco abuse Leukocytosis PLAN workup at this point has been unrevealing. Check echo as well as stress test. Additionally check a d-dimer and if this is abnormal check a CTA PE protocol. No actual atrial fibrillation noted on EKG that shows sinus rhythm with PACs. No indications for anticoagulation at CTA, d-dimer are normal. If testing is normal patient may be discharged home with outpatient follow-up. Past Medical History Past Medical History: Prostate Disorder, Seizure Disorder History of Any Multi-Drug Resistant Organisms: None Reported Past Surgical History: Orthopedic Surgery Additional Past Surgical History / Comment(s): markers for macular degeneration Past Anesthesia/Blood Transfusion Reactions: No Reported Reaction Past Psychological History: No Psychological Hx Reported Smoking Status: Former smoker Past Alcohol Use History: Occasional Past Drug Use History: None Reported Medications and Allergies Home Medications Medication Instructions Recorded Confirmed Type Atorvastatin [Lipitor] 40 mg PO DAILY 09/19/22 03/16/24 History Tamsulosin [Flomax] 0.4 mg PO DAILY 09/19/22 03/16/24 History Vit C/E/Zn/Coppr/Lutein/Zeaxan 1 cap PO BID 09/19/22 03/16/24 History [Preservision Areds 2 Softgel] Ascorbic Acid [Vitamin C] 1,000 mg PO HS 03/16/24 03/16/24 History Cholecalciferol (Vitamin D3) 50 mcg PO DAILY 03/16/24 03/16/24 History [Vitamin D3 (50 Mcg = 2000 Iu)] Flaxseed Oil 1,400 Mg 1,400 mg PO DAILY 03/16/24 03/16/24 History Rising Sun-3/Dha/Epa/Fish Oil [Fish Oil 2 cap PO DAILY 03/16/24 03/16/24 History EC 1,200 mg Softgel] Omeprazole 20 mg PO DAILY PRN 03/16/24 03/16/24 History Pyridoxine HCl (Vitamin B6) 100 mg PO BID 03/16/24 03/16/24 History [Vitamin B-6] Sertraline HCl [Zoloft] 50 mg PO HS 03/16/24 03/16/24 History levETIRAcetam [Keppra] 500 mg PO BID 03/16/24 03/16/24 History Allergies Allergy/AdvReac Type Severity Reaction Status Date / Time No Known Allergies Allergy Verified 03/16/24 11:43 Physical Exam Vitals: Vital Signs Temp Pulse Pulse Resp BP BP Pulse Ox 03/17/24 07:00 98.1 F 82 16 149/73 94 L 03/17/24 02:25 69 16 03/17/24 02:00 98.1 F 69 16 123/65 92 L 03/16/24 23:05 97.8 F 71 20 125/62 92 L 03/16/24 21:57 67 18 109/52 94 L 03/16/24 19:51 60 18 112/52 95 03/16/24 18:13 61 18 115/59 95 03/16/24 14:21 61 16 112/60 94 L 03/16/24 12:41 74 18 121/69 97 Intake and Output 03/16/24 03/17/24 03/17/24 22:59 06:59 14:59 Intake Total 162.128 Output Total 700 Balance -537.872 Intake: Intake, IV Titration 162.128 Amount Heparin Sod,Pork in 0.45% 162.128 NaCl 25,000 unit In 0.45 % NaCl 1 250ml.bag @ 12 UNITS/KG/HR 9.906 mls/hr IV .Q24H [facility] Rx#: [id number] Output: Urine 700 Other: Voiding Method Toilet # Voids 1 Weight 82.554 kg Results 03/17/24 06:45 03/17/24 06:45 Cardiac Enzymes 03/16/24 03/16/24 03/16/24 Range/Units 11:35 11:35 12:01 AST 36 (17-59) U/L Troponin I <0.012 <0.012 (0.000-0.034) ng/mL 03/16/24 Range/Units 15:46 AST (17-59) U/L Troponin I <0.012 (0.000-0.034) ng/mL Coagulation 03/16/24 03/16/24 03/17/24 Range/Units 11:35 22:44 06:45 PT 11.7 (10.0-12.5) sec APTT 37.3 H 44.7 H 29.3 (22.0-30.0) sec Lipids 03/17/24 Range/Units 06:45 Triglycerides 64.50 (0.00-149.00) mg/dL Cholesterol 114.00 (0.00-200.00) mg/dL HDL Cholesterol 42.60 (40.00-60.00) mg/dL Cholesterol/HDL Ratio 2.68 Ratio CBC 03/16/24 03/17/24 Range/Units 11:35 06:45 WBC 14.6 H 11.72 H (3.8-10.6) k/uL RBC 4.27 L 4.06 L (4.30-5.90) m/uL Hgb 13.6 12.9 L (13.0-17.5) gm/dL Hct 41.1 37.7 L (39.0-53.0) % Plt Count 221 228 (150-450) k/uL Comprehensive Metabolic Panel 03/16/24 03/17/24 Range/Units 11:35 06:45 Sodium 138 139 (137-145) mmol/L Potassium 4.0 3.6 (3.5-5.1) mmol/L Chloride 110 H 105 (98-107) mmol/L Carbon Dioxide 17 L 20.8 L (22-30) mmol/L BUN 18 12.3 (9-20) mg/dL Creatinine 0.68 0.8 (0.66-1.25) mg/dL Glucose 92 109 (74-99) mg/dL Calcium 9.2 8.5 L (8.4-10.2) mg/dL AST 36 (17-59) U/L ALT 25 (4-49) U/L Alkaline Phosphatase 90 (38-126) U/L Total Protein 6.8 (6.3-8.2) g/dL Albumin 4.1 (3.5-5.0) g/dL Current Medications Generic Name Dose Route Start Last Admin Trade Name Freq PRN Reason Stop Dose Admin Aminophylline 100 mg 03/17/24 09:47 Aminophylline 500 Mg/20 Ml Vial IV 03/17/24 13:47 ONCE PRN Patient Response Aspirin 325 mg 03/17/24 09:00 03/17/24 08:35 Aspirin 325 Mg Tab PO 325 mg DAILY JOURDAN Administration Atorvastatin Calcium 80 mg 03/17/24 09:00 03/17/24 08:35 Atorvastatin 80 Mg Tab PO 80 mg DAILY JOURDAN Administration Caffeine Citrate 60 mg 03/17/24 09:47 Caffeine Citrate 60 Mg/3 Ml Vial IV 03/17/24 13:47 ONCE PRN Patient Response Heparin Sodium (Porcine) 0 unit 03/17/24 09:02 03/17/24 09:11 Heparin Sodium 1,000 Un/Ml (10ml Vl) IV 4,125 unit PER PROTOCOL PRN Administration Low PTT Protocol Heparin Sodium/Sodium Chloride 250 mls @ 9.906 mls/hr 03/16/24 16:00 03/17/24 09:15 25,000 unit/ Sodium Chloride IV 15 units/kg/hr .Q24H JOURDAN 12.383 mls/hr Titration Protocol 12 UNITS/KG/HR Levetiracetam 500 mg 03/16/24 21:00 03/17/24 08:35 Levetiracetam 500 Mg Tab PO 500 mg BID JOURDAN Administration Morphine Sulfate 4 mg 03/16/24 11:19 03/16/24 18:15 Morphine Sulfate 4 Mg/Ml Syringe IV 4 mg Q4HR PRN Administration Chest Pain Nitroglycerin 0.4 mg 03/16/24 11:19 Nitroglycerin Sl Tabs 0.4 Mg Tab SUBLINGUAL Q5M PRN Chest Pain Pantoprazole Sodium 40 mg 03/16/24 15:50 Pantoprazole 40 Mg Tablet PO DAILY PRN acid reflux Regadenoson 0.4 mg 03/17/24 09:47 Regadenoson 0.4 Mg/5 Ml Syringe IV 03/17/24 13:47 ONCE PRN Per Protocol Sertraline HCl 50 mg 03/16/24 21:00 03/16/24 21:55 Sertraline 50 Mg Tab PO 50 mg HS JOURDAN Administration Tamsulosin HCl 0.4 mg 03/17/24 09:00 03/17/24 08:35 Tamsulosin 0.4 Mg Cap.Er.24h PO 0.4 mg DAILY JOURDAN Administration Intake and Output 03/16/24 03/17/24 03/17/24 22:59 06:59 14:59 Intake Total 162.128 Output Total 700 Balance -537.872 Intake: Intake, IV Titration 162.128 Amount Heparin Sod,Pork in 0.45% 162.128 NaCl 25,000 unit In 0.45 % NaCl 1 250ml.bag @ 12 UNITS/KG/HR 9.906 mls/hr IV .Q24H [facility] Rx#: [id number] Output: Urine 700 Other: Voiding Method Toilet # Voids 1 Weight 82.554 kg 03/17/24 06:45 03/17/24 06:45
--- NOTE | 2024-03-17 15:50 | CA ---
Lexiscan Nuclear Stress Test Report Name: Efren Holcomb Exam Date: 03/17/2024 11:30 Exam Location: [place] Stress Ht (in): 69 Wt (lb): 182 BSA: 1.98 Ordering Phys: Varun Gill DO Referring Phys: PARAM Technologist: Jann Mantilla Age: 78 Gender: M : 1945 Procedure CPT: Indications: Reflex order-Stress test ICD-10 Codes: Patient History: CHEST PAIN, DIFFICULTY IN BREATHING, HYPERCHOLESTEROLEMIA, FAMILY HX OF HEART DISEASE Medications: Meds past 24 hrs: Pretest Chest Pain: STRESS TEST Lexiscan Protocol Exercise Duration (min:sec): 01:[address] Depressions (mm): Angina Score: Beckwith Score: Resting HR (bpm): 67 Peak HR (bpm): 91 Resting BP (mmHg): 115 / 58 Peak BP (mmHg): 115 / 58 MPHR: 143 Target HR: 122 % MPHR: 64 METS: 1.0 Total Dose: Peak Dose: Atropine: Double Product: 87795 BP Response: Stress Termination: INFUSION COMPLETE Stress Symptoms: NO SYMPTOMS Stress Summary: ECG ANALYSIS Resting ECG: Stress ECG: CONCLUSIONS At baseline EKG showed normal sinus rhythm, normal axis, Q-wave in lead 3, frequent PACs, no significant ST or T wave abnormalities. Patient recieved IV infusion of Lexiscan 0.4mg and at peak infusion EKG showed no significant change from baseline. Conclusions: 1. Normal EKG response to Lexiscan infusion 2. Nuclear imaging to be reported separately. Dr. Varun Gill DO (Electronically Signed) Final Date: 17 March 2024 15:49
--- NOTE | 2024-03-17 15:51 | CA ---
Transthoracic Echo Report Name: Efren Holcomb Age: 78 Gender: M : 1945 Exam Date: 03/17/2024 12:08 Exam Location: [place] Echo Ht (in): 69 Wt (lb): 183 Ordering Physician: Ramiro Santos DO Attending/Referring Phys: [id number], Danielle Double Bass Player Soumya Davis RDCS Procedure CPT: Indications: sob Cardiac Hx: Technical Quality: Fair Contrast 1: Total Dose (mL): Contrast 2: Total Dose (mL): MEASUREMENTS (Male / Female) Normal Values 2D ECHO LV Diastolic Diameter PLAX 5.0 cm 4.2 - 5.9 / 3.9 - 5.3 cm LV Systolic Diameter PLAX 3.4 cm IVS Diastolic Thickness 1.2 cm 0.6 - 1.0 / 0.6 - 0.9 cm LVPW Diastolic Thickness 1.2 cm 0.6 - 1.0 / 0.6 - 0.9 cm LV Relative Wall Thickness 0.5 RV Internal Dim ED PLAX 2.9 cm Aortic Root Diameter 3.1 cm LA Systolic Diameter LX 4.1 cm 3.0 - 4.0 / 2.7 - 3.8 cm LV Diastolic Volume MOD BP 87.7 cm??? 67 - 155 / 56 - 104 cm??? LV Systolic Volume MOD BP 24.3 cm??? 22 - 58 / 19 - 49 cm??? LV Ejection Fraction MOD BP 72.3 % >= 55 % LV Cardiac Index MOD BP 2535.2 cm???/min???m??? LV Diastolic Volume MOD 4C 92.9 cm??? LV Systolic Volume MOD 4C 23.9 cm??? LV Ejection Fraction MOD 4C 74.3 % LV Cardiac Index MOD 4C 2763.1 cm???/min???m??? LV Diastolic Length 4C 7.8 cm LV Systolic Length 4C 6.0 cm LV Diastolic Volume MOD 2C 77.2 cm??? LV Systolic Volume MOD 2C 24.5 cm??? LV Ejection Fraction MOD 2C 68.2 % LV Cardiac Index MOD 2C 2106.9 cm???/min???m??? LV Diastolic Length 2C 7.3 cm LV Systolic Length 2C 5.8 cm M-MODE Aortic Root Diameter MM 3.1 cm LA Systolic Diameter MM 4.1 cm LA Ao Ratio MM 1.3 AV Cusp Separation MM 1.9 cm DOPPLER Mitral E Point Velocity 79.2 cm/s Mitral A Point Velocity 96.5 cm/s Mitral E to A Ratio 0.8 MV Deceleration Time 296.9 ms MV E' Velocity 5.6 cm/s Mitral E to MV E' Ratio 14.2 TR Peak Velocity 255.2 cm/s TR Peak Gradient 26.0 mmHg Right Ventricular Systolic Press 31.1 mmHg FINDINGS Left Ventricle Left ventricular ejection fraction is estimated at 60-65 %. Mildly increased septal wall thickness. No obvious regional wall motion abnormalities. Left ventricular cavity size normal. Right Ventricle Normal right ventricular size and function. Right ventricular systolic pressure within normal limits. Right Atrium Normal right atrial size. Left Atrium Mildly increased left atrial diameter. Mitral Valve Structurally normal mitral valve. Trace mitral regurgitation. Aortic Valve Trileaflet aortic valve. No aortic valve stenosis or regurgitation. Tricuspid Valve Structurally normal tricuspid valve. Mild tricuspid regurgitation. No tricuspid stenosis. Pulmonic Valve Structurally normal pulmonic valve. Mild pulmonic regurgitation. No pulmonic stenosis. Pericardium No pericardial or pleural effusion. Aorta Normal size aortic root and proximal ascending aorta. CONCLUSIONS Left ventricular ejection fraction 60-65% Mildly increased left ventricular wall thickness Trace mitral regurgitation Mild tricuspid regurgitation Previewed by: Dr. Varun Gill DO (Electronically Signed) Final Date: 17 March 2024 15:50
--- NOTE | 2024-03-17 15:54 | NM ---
EXAMINATION TYPE: NM stress lexiscan cardiolite DATE OF EXAM: 03/17/2024 COMPARISON: NONE CLINICAL INDICATION: Male, 78 years old with history of re: chest pain; TECHNIQUE: After the intravenous administration of 10.03 mCi Tc 99m Sestamibi - Cardiolite resting S PECT images acquired 45 minutes post injection. The patient received 0.4mg Lexiscan, 24 mCi Tc 99m Sestamibi - Stress images obtained 40 minutes post injection FINDINGS: Review of stress and rest SPECT images demonstrates no distinct perfusion abnormality. Gated analysi s shows normal wall motion with an estimated left ventricular ejection fraction of 66 %. TID is calc ulated at the upper limits of normal at 1.05. IMPRESSION: No scintigraphic evidence for reversible ischemia.
--- NOTE | 2024-03-17 16:11 | CT ---
EXAMINATION TYPE: CT angio chest DATE OF EXAM: 03/17/2024 COMPARISON: HISTORY: elevated d-dimer, shortness of breath, chest pain CT DLP: 514 mGycm CONTRAST: CT chest with contrast and 3D reconstruction with MIP imaging is performed with IV Contrast, patient injected with 100ml mL of Isovue 370. Contrast-enhanced CT of the chest was performed through the course of the pulmonary arteries with jose g and mediastinal window settings submitted. 3D reconstruction with MIP imaging was also performed. PULMONARY ARTERIES: The pulmonary arteries and their major tributaries are patent. I do not see arian dence for sizable filling defect to suggest pulmonary embolic process. LUNGS: Basilar atelectatic changes noted. No pulmonary nodule or mass is detected. No pleural effusi on. MEDIASTINUM: Thoracic aorta is of normal caliber,however, evaluation is limited given timing of the contrast bolus. If there is concern for thoracic aortic pathology consider JOSE. Correlate clinicall y . The heart is not enlarged. No evidence for mediastinal mass. No mediastinal lymph nodes greater than 1cm. HILAR STRUCTURES: No evidence for mass. No hilar lymph nodes greater than 1 cm. UPPER ABDOMEN: No significant abnormality is seen. IMPRESSION: 1. No evidence for Pulmonary embolism at this time.
[2024-03-17] MEDS: HEPARIN SODIUM,PORCINE 5,000 UNIT/ML 1 ML VIAL SQ SCH (20:37)
--- NOTE | 2024-03-18 01:30 | P.PN ---
Subjective Progress Note Date: 03/17/24 Patient is a 78-year-old male with known history of seizure disorder, BPH, history of urinary retention, obstructive sleep apnea on CPAP, anxiety/depression and prior history of smoking initially presented to [facility] due to complaints of chest pain. Patient states that he woke up this morning and felt mid retrosternal chest discomfort/pain and pressure like indigestion. Paton like burning and sharp pain. Patient also felt left shoulder pain and back pain is worse with shortness of breath. Denies any recent illnesses. No cough or sputum production. No fever no chills. Patient initially presented to [facility] where he had workup done including CBC BMP. Troponin x 1 negative. proBNP 66 and chest x-ray showed vascular congestion. Patient was given nitro sublingual followed by Nitropaste. Which seem to improve his symptoms. Initial EKG showed atrial fibrillation with controlled ventricular rate. Due to complaints of chest pain and shortness of breath patient was transferred to [facility] for further evaluation. He was also started on heparin drip at the facility. On admission chest x-ray showed cardiomegaly and mild patchy bibasilar densities possibly atelectasis. EKG showed sinus rhythm with intraventricular conduction delay. Laboratory test showed WBC 14.6 hemoglobin 13.6 and platelets 221, sodium 138 potassium 4.0 chloride 110 bicarb is 17 BUN 18 and creatinine 0.68 and blood sugar 92 liver enzymes are not elevated troponin x 3 negative proBNP 122 and albumin 4.1 03/17/2024 Patient is currently resting in the bed. Awake alert and oriented x 3. Denies any further complaints of chest pain or tightness. Patient underwent Lexiscan stress test report is pending. CTA chest was ordered to rule out PE due to elevated D-dimer level. Laboratory pressure WBC 11.7 hemoglobin 12.9 and platelets 228 sodium 139 potassium 3.6 chloride 105 bicarb is 20.8 BUN 12.3 and creatinine 0.8 and blood sugar is 109 LDL 58.5. Urinalysis is negative for infection. Troponin x 3 negative. Current medications reviewed. Objective - Vital Signs Vital signs: Vital Signs Temp 98.5 F 03/17/24 20:03 Pulse 54 L 03/17/24 21:16 Resp 16 03/17/24 21:16 BP 95/56 03/17/24 20:03 Pulse Ox 93 L 03/17/24 20:03 FiO2 Intake & Output 03/17/24 03/17/24 03/18/24 06:59 18:59 06:59 Intake Total 162.128 Output Total 700 Balance -537.872 Weight 82.554 kg Intake: Intake, IV Titration 162.128 Amount Heparin Sod,Pork in 0.45% 162.128 NaCl 25,000 unit In 0.45 % NaCl 1 250ml.bag @ 12 UNITS/KG/HR 9.906 mls/hr IV .Q24H [facility] Rx#: [id number] Output: Urine 700 Other: Voiding Method Toilet Toilet # Voids 1 3 - Exam PHYSICAL EXAMINATION: Patient is lying in the bed comfortably, no acute distress, awake alert and oriented.. HEENT: Normocephalic. Neck is supple. Pupils reactive. Nostrils clear. Oral cavity is moist. Neck reveals no JVD, carotid bruits, or thyromegaly. CHEST EXAMINATION: Trachea is central. Symmetrical expansion. Lung au clear to auscultation and percussion. CARDIAC: Normal S1, S2 with no gallops. No murmurs ABDOMEN: Soft. Bowel sounds normal. No organomegaly. No abdominal bruits. Extremities: reveal no edema. No clubbing or cyanosis Neurologically awake, alert, oriented x3 with well-coordinated movements. No focal deficits noted Skin: No rash or skin lesions. Psychiatric: Coperative. Nonsuicidal Musculoskeletal: No joint swelling or deformity. Normal range of motion. - Labs CBC & Chem 7: 03/17/24 06:45 03/17/24 06:45 Labs: Abnormal Lab Results - Last 24 Hours (Table) 03/16/24 03/16/24 03/17/24 Range/Units 22:44 22:58 06:45 WBC (4.50-10.00) X 10*3/uL RBC (4.40-5.60) X 10*6/uL Hgb (13.0-17.0) g/dL Hct (39.6-50.0) % Neutrophils # (1.80-7.70) X 10*3/uL Lymphocytes # (0.90-5.00) X 10*3/uL APTT 44.7 H (22.0-30.0) sec D-Dimer (<0.60) mg/L FEU Carbon Dioxide 20.8 L (21.6-31.8) mmol/L Anion Gap 13.20 H (4.00-12.00) mmol/L Calcium 8.5 L (8.7-10.3) mg/dL Urine Blood Small H (Negative) Urine Mucus Occasional H (None) /hpf 03/17/24 03/17/24 03/17/24 Range/Units 06:45 14:31 14:31 WBC 11.72 H (4.50-10.00) X 10*3/uL RBC 4.06 L (4.40-5.60) X 10*6/uL Hgb 12.9 L (13.0-17.0) g/dL Hct 37.7 L (39.6-50.0) % Neutrophils # 10.08 H (1.80-7.70) X 10*3/uL Lymphocytes # 0.73 L (0.90-5.00) X 10*3/uL APTT 32.4 H (22.0-30.0) sec D-Dimer 1.21 H (<0.60) mg/L FEU Carbon Dioxide (21.6-31.8) mmol/L Anion Gap (4.00-12.00) mmol/L Calcium (8.7-10.3) mg/dL Urine Blood (Negative) Urine Mucus (None) /hpf Assessment and Plan Assessment: Atypical chest pain ruled out ACS. Status post Lexiscan stress test today. Unlikely atrial fibrillation as per cardiology report. Seizure disorder on antiepileptic medications Hyperlipidemia BPH Obstructive sleep apnea on CPAP at home Prior history of smoking DVT prophylaxis patient is already on heparin drip Plan: Patient will be continued on telemonitoring. Serial EKG and troponin x 3 negative. Heparin drip has been discontinued. Heart rate is controlled. Patient was seen by cardiology. Lexiscan stress test was done today. Patient was started back on home medications including Keppra and Flomax. Continue with aspirin and statin. Lipid panel showed LDL 58.. Chest x-ray showed no acute process. Urinalysis is negative for infection. Leukocytosis trending down. Continue to follow closely. Discussed with the patient and his family at great bedside in detail. Time with Patient: Greater than 30
[2024-03-18] MEDS: ATORVASTATIN 40 MG TAB PO SCH (08:07)
[2024-03-18 08:39] LABS: Basophils # (A) 0.03 X 10*3/uL (0.00-0.10); Basophils % (A) 0.4 %; Eosinophils # (A) 0.26 X 10*3/uL (0.04-0.35); Eosinophils % (A) 3.1 %; HCT 36.7 % (39.6-50.0); HGB 12.3 g/dL (13.0-17.0); Lymphocytes # (A) 1.13 X 10*3/uL (0.90-5.00); Lymphocytes % (A) 13.6 %; MCH 31.1 pg (27.0-32.0); MCHC 33.5 g/dL (32.0-37.0); MCV 92.9 FL (80.0-97.0); Mean Platelet Volume 10.5 FL (9.5-12.2); Monocytes # (A) 0.66 X 10*3/uL (0.20-1.00); Monocytes % (A) 7.9 %; NRBC Per 100 WBC 0 X 10*3/uL (0.00-0.01); Neutrophils # (A) 6.21 X 10*3/uL (1.80-7.70); Neutrophils % (A) 74.6 %; Platelet Count 245 X 10*3/uL (140-440); RBC 3.95 X 10*6/uL (4.40-5.60); RDW 13.8 % (11.5-14.5); WBC 8.32 X 10*3/uL (4.50-10.00)
[2024-03-18 11:03] LABS: BUN/Creat Ratio 15.12 Ratio (12.00-20.00); Blood Urea Nitrogen 12.1 mg/dL (9.0-27.0); Calcium 8.3 mg/dL (8.7-10.3); Carbon Dioxide 21.6 mmol/L (21.6-31.8); Chloride 107 mmol/L (96-109); Glucose 103 mg/dL (70-110); Potassium 3.4 mmol/L (3.5-5.5); Sodium 140 mmol/L (135-145)
--- NOTE | 2024-03-18 12:21 | P.PN ---
Subjective HISTORY OF PRESENT ILLNESS: This is a pleasant 78-year-old with past medical history significant for BPH, seizure disorder, urinary retention, obstructive sleep apnea, previous tobacco abuse since quit. Patient initially presented to [facility] with episode of chest discomfort and indigestion feeling. This has been ongoing for the last 3 days since . He states symptoms have been ongoing and not getting any better and therefore presented to emergency department. He does admit that he takes in a deep breath and will get somewhat worse. Normally is very active walking approximately 4 miles a day and has not been able to do this recently secondary to chest pain. Is not palpable with palpation and does radiated somewhat to his neck and his shoulder. He admits to some shortness breath. No nausea or diaphoresis. No recent changes in medications. EKG shows normal sinus rhythm with frequent PACs and lax axis deviation, poor R-wave progression and no significant ST or T-wave abnormalities. 03/18/2024 Patient examined this morning the bedside. Patient currently denies chest pain or pressure. He denies shortness of breath. He underwent Lexiscan stress test yesterday which was negative for ischemia. CTA was completed which was negative for pulmonary embolism. Vital signs are stable this morning. Patient is hoping to be discharged home today. PHYSICAL EXAM: VITAL SIGNS: Reviewed. GENERAL: Well-developed in no acute distress. NECK: Supple. No JVD or thyromegaly LUNGS: Respirations even and unlabored. Lungs essentially clear to auscultation bilaterally. HEART: Regular rate and rhythm. S1 and S2 heard. EXTREMITIES: Normal range of motion. No clubbing or cyanosis. Peripheral pulses intact. No lower extremity edema ASSESSMENT: Atypical chest pain, status post Leticia scan negative for ischemia Shortness breath, etiology unclear Reported atrial fibrillation by prior EKG, no atrial fibrillation only sinus rhythm with PACs Obstructive sleep apnea Previous tobacco abuse Leukocytosis PLAN: Continue current cardiac medications Patient is stable for discharge home today from a cardiac standpoint Nurse practitioner note has been reviewed by physician. Signing provider agrees with the documented findings, assessment, and plan of care documented by HOG TRADER as a scribe. Objective - Vital Signs Vital signs: Vital Signs Temp 97.5 F L 03/18/24 07:10 Pulse 55 L 03/18/24 07:10 Resp 03/18/24 07:10 BP 132/69 03/18/24 07:10 Pulse Ox 93 L 03/18/24 07:10 FiO2 Intake & Output 03/17/24 03/18/24 03/18/24 18:59 06:59 18:59 Intake Total 162.128 118 Output Total 700 Balance -537.872 118 Intake: Intake, IV Titration 162.128 Amount Heparin Sod,Pork in 0.45% 162.128 NaCl 25,000 unit In 0.45 % NaCl 1 250ml.bag @ 12 UNITS/KG/HR 9.906 mls/hr IV .Q24H [facility] Rx#: [id number] Oral 118 Output: Urine 700 Other: Voiding Method Toilet # Voids 3 2 - Labs CBC & Chem 7: 03/18/24 05:27 03/18/24 05:27 Labs: Abnormal Lab Results - Last 24 Hours (Table) 03/17/24 03/17/24 03/18/24 Range/Units 14:31 14:31 05:27 RBC 3.95 L (4.40-5.60) X 10*6/uL Hgb 12.3 L (13.0-17.0) g/dL Hct 36.7 L (39.6-50.0) % APTT 32.4 H (22.0-30.0) sec D-Dimer 1.21 H (<0.60) mg/L FEU Potassium (3.5-5.5) mmol/L Calcium (8.7-10.3) mg/dL 03/18/24 Range/Units 05:27 RBC (4.40-5.60) X 10*6/uL Hgb (13.0-17.0) g/dL Hct (39.6-50.0) % APTT (22.0-30.0) sec D-Dimer (<0.60) mg/L FEU Potassium 3.4 L (3.5-5.5) mmol/L Calcium 8.3 L (8.7-10.3) mg/dL
[2024-03-18] MEDS: POTASSIUM CHLORIDE ER 20 MEQ TAB.ER PO STA (12:27)
[2024-03-18 14:35] VITALS: BP 92/58; PULSE 59; RESP 16; TEMP 97.7
== END 2024-03-18 15:45 | disposition home or self-care (01) | DRG 313 ==
LOC: EC 11:03 → 6NMEDSUR 11:20 → OBSVTOIN 03-18 09:18
PROVIDERS: ADMIT Hospitalist; ATTEND Hospitalist
PROC: 4A02XM4 Measurement of Cardiac Total Activity, External Approach (ICD-10-PCS; principal; 2024-03-18)
DX: R07.89 Other chest pain (principal); D72.829 Elevated white blood cell count, unspecified; E78.5 Hyperlipidemia, unspecified; G47.33 Obstructive sleep apnea (adult) (pediatric); G40.909 Epilepsy, unspecified, not intractable, without status epilepticus; N40.1 Benign prostatic hyperplasia with lower urinary tract symptoms; R33.8 Other retention of urine; F41.9 Anxiety disorder, unspecified; F32.A Depression, unspecified; I49.3 Ventricular premature depolarization; I08.1 Rheumatic disorders of both mitral and tricuspid valves; Z87.891 Personal history of nicotine dependence; Z79.899 Other long term (current) drug therapy
CPT/HCPCS: 71045; 71275; 78452; 80048; 80053; 80061; 81001; 83735; 83880; 84484; 85025; 85379; 85610; 85730; 93005; 93017; 93306; 96361; 96365; 96366; 96375; 96376; 99285

== ENCOUNTER 2024-09-03 16:49 | Emergency (ER) | payer MEDICARE, BC ==
[2024-09-03 16:56] VITALS: RESP 18
--- NOTE | 2024-09-03 17:18 | ED ---
General Adult HPI - General Chief complaint: Urogenital Stated complaint: Urogenital Time Seen by Provider: 09/03/24 16:52 Source: patient, EMS Mode of arrival: EMS Limitations: no limitations - History of Present Illness Initial comments: Dictation was produced using [employer] dictation software. please excuse any grammatical, word or spelling errors. Chief Complaint: 78-year-old male transfer from [facility] for hematuria History of Present Illness: 78-year-old male history of prostatic hypertrophy emergency department for hematuria. Presented patient initially presented to [facility] where he presented there for urinary retention. Patient self caths. States that around 9 AM he tried to self cath but there was no output. He went to the emergency department had a Zuniga catheter placed which relieved his retention. He was sent here for urology consultation. Patient has no other complaints. The ROS documented in this emergency department record has been reviewed and confirmed by me. Those systems with pertinent positive or negative responses have been documented in the HPI. All other systems are other negative and/or noncontributory. - Related Data Home Medications Medication Instructions Recorded Confirmed Atorvastatin [Lipitor] 40 mg PO DAILY 09/19/22 03/16/24 Tamsulosin [Flomax] 0.4 mg PO DAILY 09/19/22 03/16/24 Vit C/E/Zn/Coppr/Lutein/Zeaxan 1 cap PO BID 09/19/22 03/16/24 [Preservision Areds 2 Softgel] Cholecalciferol (Vitamin D3) 50 mcg PO DAILY 03/16/24 03/16/24 [Vitamin D3 (50 Mcg = 2000 Iu)] Flaxseed Oil 1,400 Mg 1,400 mg PO DAILY 03/16/24 03/16/24 [place]-3/Dha/Epa/Fish Oil [Fish Oil 2 cap PO DAILY 03/16/24 03/16/24 EC 1,200 mg Softgel] Omeprazole 20 mg PO DAILY PRN 03/16/24 03/16/24 Pyridoxine HCl (Vitamin B6) 100 mg PO BID 03/16/24 03/16/24 [Vitamin B-6] Sertraline HCl [Zoloft] 50 mg PO HS 03/16/24 03/16/24 levETIRAcetam [Keppra] 500 mg PO BID 03/16/24 03/16/24 Allergies Allergy/AdvReac Type Severity Reaction Status Date / Time No Known Allergies Allergy Verified 09/03/24 16:56 Review of Systems ROS Statement: Those systems with pertinent positive or pertinent negative responses have been documented in the HPI. ROS Other: All systems not noted in ROS Statement are negative. Past Medical History Past Medical History: Prostate Disorder, Seizure Disorder History of Any Multi-Drug Resistant Organisms: None Reported Past Surgical History: Orthopedic Surgery Additional Past Surgical History / Comment(s): markers for macular degeneration Past Anesthesia/Blood Transfusion Reactions: No Reported Reaction Past Psychological History: No Psychological Hx Reported Smoking Status: Former smoker Past Alcohol Use History: Occasional Past Drug Use History: None Reported General Exam - General Exam Comments Initial Comments: General: Well-appearing, nontoxic, no acute distress. Head: Normocephalic, atraumatic Eyes: PERRLA, EOMI ENT: Airway patent Chest: Nonlabored breathing Skin: No visual rash, normal skin tone Neuro: Alert and oriented 3 Musculoskeletal: No gross abnormalities Limitations: no limitations Course Vital Signs 09/03/24 16:52 Temperature 97.4 F L Pulse Rate 81 Respiratory 18 Rate Blood Pressure 182/74 O2 Sat by Pulse 99 Oximetry Medical Decision Making - Medical Decision Making Was pt. sent in by a medical professional or institution (, PA, AVIATION MAINTENANCE TECHNICIAN, urgent care, hospital, or [facility]cc...) When possible be specific @ -Outside emergency department Did you speak to anyone other than the patient for history (EMS, parent, family, police, friend...)? What history was obtained from this source @ -No Did you review nursing and triage notes (agree or disagree)? Why? @ -I reviewed and agree with nursing and triage notes Were old charts reviewed (outside hosp., previous admission, EMS record, old EKG, old radiological studies, urgent care reports/EKG's, [facility]cc records)? Report findings @ -Transfer documentation was reviewed Differential Diagnosis (chest pain, altered mental status, abdominal pain women, abdominal pain men, vaginal bleeding, musculoskeletal, weakness, fever, dyspnea, syncope, headache, dizziness, GI bleed, back pain, seizure, CVA, palpatations, mental health)? @ -Prostate hypertrophy, renal laceration urethral laceration EKG interpreted by me (3pts min.). @ -None done X-rays interpreted by me (1pt min.). @ -None done CT interpreted by me (1pt min.). @ -None done U/S interpreted by me (1pt. min.). @ -None done What testing was considered but not performed or refused? (CT, X-rays, U/S, labs)? Why? @ -None What meds were considered but not given or refused? Why? @ -None Was smoking cessation discussed for >3mins.? @ -No Were there social determinants of health that impacted care today? How? (Homelessness, low income, unemployed, alcoholism, drug addiction, transportation, low edu. Level, literacy, decrease access to med. care, long term, rehab)? @ -No Was there de-escalation of care discussed even if they declined (Discuss DNR or withdrawal of care, Hospice)? DNR status @ -No What co-morbidities impacted this encounter? (DM, HTN, Smoking, COPD, CAD, Cancer, CVA, ARF, Chemo, Hep., AIDS, mental health diagnosis, sleep apnea, morbid obesity)? @ -None Was patient admitted / discharged? Hospital course, mention meds given and route, prescriptions, significant lab abnormalities, going to OR and other pertinent info. @ -78-year-old male presents emergency department with urinary tract obstruction and hematuria. Vital signs upon arrival are within acceptable limits. Patient reports significant relief since Zuniga has been placed. Transferred documentations reviewed patient had normal renal labs. Rest of labs within acceptable limits. He did have a CT that showed bilateral hydronephrosis. Patient doing well. Reevaluated at bedside with stable medical addition. Observed emergency department for 2 hours. At 7:07 PM his Zuniga catheter was working well. Discussed with on-call urology who recommends patient be discharged. Patient given return precautions. Did you discuss the management of the patient with other professionals (professionals i.e. , PA, AVIATION MAINTENANCE TECHNICIAN, lab, RT, psych nurse, social problems specialist, accounting manager assistant controller, teacher, field health officer, geriatric case manager)? Give summary @ -Case discussed with on-call urologist, Dr. Oleary states that patient is stable for discharge and to follow-up with his urologist Was critical care preformed (if so, how long)? @ -No Undiagnosed new problem with uncertain prognosis? @ -No Drug Therapy requiring intensive monitoring for toxicity (Heparin, Nitro, Insulin, Cardizem)? @ -No Were any procedures done? @ -No Diagnosis/symptom? Acute, or Chronic, or Acute on Chronic? Uncomplicated (without systemic symptoms) or Complicated (systemic symptoms)? @ -Urinary tract obstruction Side effects of treatment? @ -No Exacerbation, Progression, or Severe Exacerbation? @ -No Poses a threat to life or bodily function? How? (Chest pain, [place], [place], pneumonia, PE, COPD, DKA, ARF, appy, cholecystitis, CVA, Diverticulitis, Homicidal, Suicidal, threat to staff... and all critical care pts) @ -Yes Disposition Clinical Impression: Hematuria Disposition: HOME SELF-CARE Condition: Fair Instructions (If sedation given, give patient instructions): Hematuria (ED) Is patient prescribed a controlled substance at d/c from ED?: No Referrals: Ajay Carrasco MD [Primary Care Provider] - 1-2 days Ayo Bass MD [STAFF PHYSICIAN] - 1-2 days Time of Disposition: 19:08
[2024-09-03 19:40] VITALS: BP 135/72; PULSE 59; TEMP 97.8
== END 2024-09-03 19:47 | disposition home or self-care (01) ==
LOC: EC 16:49
DX: N39.0 Urinary tract infection, site not specified (principal); R33.9 Retention of urine, unspecified; Z87.891 Personal history of nicotine dependence
CPT/HCPCS: 99283; 99284

== ENCOUNTER 2024-09-05 17:01 | Emergency (ER) | payer MEDICARE, BC ==
[2024-09-05 17:22] VITALS: RESP 18
--- NOTE | 2024-09-05 17:35 | ED ---
Male Urogenital HPI - General Chief complaint: Urogenital Stated complaint: CATH ISSUES Time Seen by Provider: 09/05/24 17:23 Source: patient, family, RN notes reviewed Mode of arrival: wheelchair Limitations: no limitations - History of Present Illness Initial comments: This is a 78-year-old male with a history of BPH presenting to the emergency department for urinary retention. Patient states that since 12:00 today he has had minimal to no output from his Zuniga catheter and has been experiencing suprapubic tenderness over this time. Patient was evaluated on 09/03/2024 where flush of his catheter revealed passage of a blood clot and catheter draining appropriately and patient was discharged in stable condition. Patient states that he has been unable to follow-up with his urologist outpatient due to his urologist being on vacation. He denies fevers, chills, nausea, vomiting. - Related Data Home Medications Medication Instructions Recorded Confirmed Atorvastatin [Lipitor] 40 mg PO DAILY 09/19/22 03/16/24 Tamsulosin [Flomax] 0.4 mg PO DAILY 09/19/22 03/16/24 Vit C/E/Zn/Coppr/Lutein/Zeaxan 1 cap PO BID 09/19/22 03/16/24 [Preservision Areds 2 Softgel] Cholecalciferol (Vitamin D3) 50 mcg PO DAILY 03/16/24 03/16/24 [Vitamin D3 (50 Mcg = 2000 Iu)] Flaxseed Oil 1,400 Mg 1,400 mg PO DAILY 03/16/24 03/16/24 [place]-3/Dha/Epa/Fish Oil [Fish Oil 2 cap PO DAILY 03/16/24 03/16/24 EC 1,200 mg Softgel] Omeprazole 20 mg PO DAILY PRN 03/16/24 03/16/24 Pyridoxine HCl (Vitamin B6) 100 mg PO BID 03/16/24 03/16/24 [Vitamin B-6] Sertraline HCl [Zoloft] 50 mg PO HS 03/16/24 03/16/24 levETIRAcetam [Keppra] 500 mg PO BID 03/16/24 03/16/24 Allergies Allergy/AdvReac Type Severity Reaction Status Date / Time No Known Allergies Allergy Verified 09/05/24 17:18 Review of Systems ROS Statement: Those systems with pertinent positive or pertinent negative responses have been documented in the HPI. ROS Other: All systems not noted in ROS Statement are negative. Past Medical History Past Medical History: Prostate Disorder, Seizure Disorder History of Any Multi-Drug Resistant Organisms: None Reported Past Surgical History: Orthopedic Surgery Additional Past Surgical History / Comment(s): markers for macular degeneration Past Anesthesia/Blood Transfusion Reactions: No Reported Reaction Past Psychological History: No Psychological Hx Reported Smoking Status: Former smoker Past Alcohol Use History: Occasional Past Drug Use History: None Reported General Exam Limitations: no limitations General appearance: alert, in no apparent distress ENT exam: Present: normal exam, mucous membranes moist Neck exam: Present: normal inspection. Absent: tenderness, meningismus, lymphadenopathy Cardiovascular Exam: Present: regular rate, normal rhythm, normal heart sounds. Absent: systolic murmur, diastolic murmur, rubs, gallop, clicks GI/Abdominal exam: Present: soft, distended (suprapubic ), tenderness, normal bowel sounds. Absent: guarding, rebound, rigid, mass, pulsatile mass Extremities exam: Present: normal inspection, full ROM, normal capillary refill. Absent: tenderness, pedal edema, joint swelling, calf tenderness Back exam: Present: normal inspection Course Vital Signs 09/05/24 17:19 Temperature 97.4 F L Pulse Rate 61 Respiratory 18 Rate Blood Pressure 124/64 O2 Sat by Pulse 94 L Oximetry Medical Decision Making - Medical Decision Making Was pt. sent in by a medical professional or institution (, PA, DIRECTOR OF PROVIDER RELATIONS, urgent care, hospital, or jail...) When possible be specific @ -No Did you speak to anyone other than the patient for history (EMS, parent, family, police, friend...)? What history was obtained from this source @ -No Did you review nursing and triage notes (agree or disagree)? Why? @ -I reviewed and agree with nursing and triage notes Were old charts reviewed (outside hosp., previous admission, EMS record, old EKG, old radiological studies, urgent care reports/EKG's, jail records)? Report findings @ -No old charts were reviewed Differential Diagnosis (chest pain, altered mental status, abdominal pain women, abdominal pain men, vaginal bleeding, weakness, fever, dyspnea, syncope, headache, dizziness, GI bleed, back pain, seizure, CVA, palpatations, mental health, musculoskeletal)? @ -Urinary tract infection, urinary catheter malfunction, this list not all inclusive EKG interpreted by me (3pts min.). @ -None X-rays interpreted by me (1pt min.). @ -None done CT interpreted by me (1pt min.). @ -None done U/S interpreted by me (1pt. min.). @ -None done What testing was considered but not performed or refused? (CT, X-rays, U/S, labs)? Why? @ -None What meds were considered but not given or refused? Why? @ -None Did you discuss the management of the patient with other professionals (professionals i.e. DrElijah, PA, DIRECTOR OF PROVIDER RELATIONS, lab, RT, psych nurse, social services designee, corporation lawyer, teacher, ambulance officer, director of casework)? Give summary @ -No Was smoking cessation discussed for >3mins.? @ -No Was critical care preformed (if so, how long)? @ -No Were there social determinants of health that impacted care today? How? (Homelessness, low income, unemployed, alcoholism, drug addiction, transportation, low edu. Level, literacy, decrease access to med. care, long term, rehab)? @ -No Was there de-escalation of care discussed even if they declined (Discuss DNR or withdrawal of care, Hospice)? DNR status @ -No What co-morbidities impacted this encounter? (DM, HTN, Smoking, COPD, CAD, Cancer, CVA, ARF, Chemo, Hep., AIDS, mental health diagnosis, sleep apnea, morbid obesity)? @ -None Was patient admitted / discharged? Hospital course, mention meds given and route, prescriptions, significant lab abnormalities, going to OR and other pertinent info. @ -Discharge. 78-year-old male presenting with urinary retention. Bladder scan completed revealing over 800 cc of urine within the bladder. Successful flush by nursing staff revealed passage of multiple blood clots and urinary drainage the Zuniga catheter. Urinalysis remarkable for blood with rare bacteria and urine is sent for culture. Recommend that patient contact urologist to schedule follow-up appointment next week for further evaluation report back to the emergency department for any new or worsening symptoms. Case discussed with Dr. Blandon Undiagnosed new problem with uncertain prognosis? @ -No Drug Therapy requiring intensive monitoring for toxicity (Heparin, Nitro, Insulin, Cardizem)? @ -No Were any procedures done? @ -No Diagnosis/symptom? @ -urinary retention Acute, or Chronic, or Acute on Chronic? @ -acute Uncomplicated (without systemic symptoms) or Complicated (systemic symptoms)? @ -uncomplicated Side effects of treatment? @ -No Exacerbation, Progression, or Severe Exacerbation? @ -No Poses a threat to life or bodily function? How? (Chest pain, [place], [place], pneumonia, PE, COPD, DKA, ARF, appy, cholecystitis, CVA, Diverticulitis, Homicidal, Suicidal, threat to staff... and all critical care pts) @ -No - Lab Data Lab Results 09/05/24 Range/Units 17:40 Urine Color Light Red Urine Appearance Cloudy (Clear) Urine pH 6.0 (5.0-8.0) Ur Specific [place] 1.008 (1.001-1.035) Urine Protein 1+ H (Negative) Urine Glucose (UA) Negative (Negative) Urine Ketones Negative (Negative) Urine Blood Large H (Negative) Urine Nitrite Negative (Negative) Urine Bilirubin Negative (Negative) Urine Urobilinogen <2.0 (<2.0) mg/dL Ur Leukocyte Esterase Small H (Negative) Urine RBC >182 H (0-5) /hpf Urine WBC 8 H (0-5) /hpf Urine Bacteria Rare H (None) /hpf Urine Mucus Rare H (None) /hpf Disposition Clinical Impression: Urinary catheter complication Disposition: HOME SELF-CARE Condition: Good Instructions (If sedation given, give patient instructions): Urinary Retention in Men (ED) Additional Instructions: Please return to the Emergency Department if symptoms worsen or any other concerns. Is patient prescribed a controlled substance at d/c from ED?: No Referrals: Garret Ferrara NPC [Primary Care Provider] - 1-2 days Time of Disposition: 18:05
[2024-09-05 17:55] LABS: Appearance,Urine Cloudy (Clear); Bacteria,Urine Rare /hpf; Bilirubin,Urine Negative (Negative); Blood,Urine Large (Negative); Color,Urine Light Red; Glucose,Urine (UA) Negative (Negative); Ketones,Urine Negative (Negative); Leukocyte Esterase,Urine Small (Negative); Mucus,Urine Rare /hpf; Nitrite,Urine Negative (Negative); Protein,Urine 1+ (Negative); RBC,Urine >182 /hpf (0-5); Specific Gravity,Urine 1.008 (1.001-1.035); Urobilinogen,Urine <2.0 mg/dL (<2.0); WBC,Urine 8 /hpf (0-5)
[2024-09-05 18:26] VITALS: BP 123/72; PULSE 66; TEMP 98.2
== END 2024-09-05 18:22 | disposition home or self-care (01) ==
LOC: EC 17:01
DX: T83.9XXA Unspecified complication of genitourinary prosthetic device, implant and graft, initial encounter (principal); Z87.891 Personal history of nicotine dependence
CPT/HCPCS: 51798; 81001; 87086; 99284

== ENCOUNTER → 2024-09-25 | Outpatient (CLI) | payer MEDICARE, BC ==
[2024-09-25 13:26] LABS: African American GFR (CKD) 75 (>60 ml/min/1.73 sqM); Blood Urea Nitrogen 34 mg/dL (9-20); Non-African American GFR(CKD) 65 (>60 ml/min/1.73 sqM)
--- NOTE | 2024-09-25 14:03 | CT ---
EXAMINATION TYPE: CT abdomen pelvis w con CT DLP: 1005.1 mGycm, Automated exposure control for dose reduction was used. DATE OF EXAM: 09/25/2024 1:48 PM COMPARISON: CTA chest 03/17/2024 CLINICAL INDICATION:Male, 78 years old with history of R31.0 GROSS HEMATURIA; Gross hematuria. TECHNIQUE: Standard CT of the abdomen and pelvis following the administration of 100 cc of Isovue 3 00 IV contrast material. Coronal and sagittal reformats were performed. FINDINGS: LOWER CHEST: Posterior dependent subsegmental atelectasis is noted. ABDOMEN LIVER: Right hepatic lobe 2.8 cm cyst. Additional subcentimeter probable caudate lobe cyst. GALLBLADDER AND BILE DUCTS: Unremarkable. PANCREAS: Unremarkable. SPLEEN: Unremarkable. ADRENAL GLANDS: Unremarkable. KIDNEYS AND URETERS: No evidence of hydronephrosis or renal calculus. The kidneys enhance symmetrical ly. Couple of subcentimeter bilateral renal hypodense foci which are too small to characterize but li florence represent cysts. Contrast is demonstrated within both collecting systems on the delayed phase. PELVIS BLADDER: Circumferential wall thickening of the urinary bladder measuring up to 8 mm. Questionable ma ss versus an indentation from the prostate gland within the urinary bladder base (series 3, image 77) . REPRODUCTIVE: Prostate is enlarged in size measuring 7.9 cm in transverse dimension. This indents upo n the urinary bladder base ABDOMEN & PELVIS STOMACH AND BOWEL: Stomach and duodenum are unremarkable. Scattered distal colonic diverticulosis wit hout evidence for acute diverticulitis. No focal bowel wall thickening or surrounding inflammatory ch anges. No evidence of bowel obstruction. PERITONEUM: No evidence of pneumoperitoneum or free fluid. VASCULATURE: Minimal atherosclerotic calcifications are present throughout the abdominal aorta and it s branches. No evidence of aortic aneurysm. MUSCULOSKELETAL: No acute osseous abnormalities. No aggressive osseous lesion. Minimal multilevel deg enerative disc disease and facet arthropathy. DISH of the lower thoracic spine. LYMPH NODES: No evidence for lymphadenopathy. SOFT TISSUE/ABDOMINAL WALL: Small fat filled left inguinal hernia with some nonspecific subcentimeter nodularity. Postsurgical changes from right inguinal hernia repair with mesh. Small fat filled herni a. IMPRESSION: 1. Circumferential wall thickening of the urinary bladder. Correlate with urinalysis. Questionable m ass versus an indentation from the prostate gland within the urinary bladder. Recommend direct visual ization. 2. Prostatomegaly. Correlate with PSA values. 3. Small fat filled left hilar hernia with nonspecific subcentimeter nodularity. 4. Colonic diverticulosis without evidence for acute diverticulitis. [facility], , 09/25/2024 2:00 PM
== END | disposition home or self-care (01) ==
LOC: RADCTMAIN 12:42
PROVIDERS: ATTEND Urology
DX: N40.0 Benign prostatic hyperplasia without lower urinary tract symptoms (principal); K57.30 Diverticulosis of large intestine without perforation or abscess without bleeding; R31.0 Gross hematuria; N32.9 Bladder disorder, unspecified
CPT/HCPCS: 82565; 84520; 74177; 36415; Q9967

== ENCOUNTER 2024-10-30 09:22 | Day surgery (SDC) | payer MEDICARE, BC ==
[2024-10-26 16:30] VITALS: BMI 25.8
--- NOTE | 2024-10-27 09:31 | P.HPIHPCON ---
History of Present Illness H&P Date: 10/27/24 Chief Complaint: BPH This is a 78-year-old male with history of 180 g prostate and recurrent urinary retention. Patient has had multiple episodes of urinary retention. Discussed with him given the size of his prostate option of a robotic simple prostatectomy versus HoLEP. Risk and benefit of each approach were discussed in details. He agreed to proceed with a robotic simple prostatectomy. He is aware of the risk which include but not limited to bleeding, infection, urinary incontinence, erectile dysfunction. Discussed the risk of persistent retention even with a robotic simple. Risk of injury to nearby organs was also discussed. Risk of anesthesia was also discussed with him in details. He understood all the risk and agreed to proceed Consent for Procedure: I have explained the operation/procedure to the patient, including the risks, benefits, side effects, alternative therapies (including not receiving the proposed treatment or service), the likelihood of the patient achieving his/her goals, and potential recuperation problems for the procedure/sedation/analgesia, as well as any blood products, if indicated. I also explained to the patient the risks, benefits and side effects of the alternatives, as well as the risks re lated to not receiving the proposed procedure, care, treatment, or services. Past Medical History Past Medical History: GERD/Reflux, Hearing Disorder / Deafness, Prostate Disorder, Seizure Disorder, Sleep Apnea/CPAP/BIPAP Additional Past Medical History / Comment(s): Last seizure-Sep 2022."Borderline high Cholesterol." Arthritis. Uses CPAP. enlarged prostate. History of Any Multi-Drug Resistant Organisms: None Reported Past Surgical History: Appendectomy, Hernia Repair, Joint Replacement, Orthopedic Surgery Additional Past Surgical History / Comment(s): markers for macular degeneration. Lt knee replacement. Fundoplication Past Anesthesia/Blood Transfusion Reactions: No Reported Reaction Additional Past Anesthesia/Blood Transfusion Reaction / Comment(s): No hx of blood transfusions to date. Smoking Status: Former smoker - Past Family History Sister(s) Family Medical History: Cancer Additional Family Medical History / Comment(s): Breast cancer, Melanoma, anal and bowel cancer. 3 sister had cancer. Brother(s) Family Medical History: Cancer Additional Family Medical History / Comment(s): Brain cancer. Father Family Medical History: CVA/TIA Medications and Allergies Home Medications Medication Instructions Recorded Confirmed Type Atorvastatin [Lipitor] 40 mg PO HS 09/19/22 10/26/24 History Tamsulosin [Flomax] 0.4 mg PO QAM 09/19/22 10/26/24 History Vit C/E/Zn/Coppr/Lutein/Zeaxan 1 cap PO BID 09/19/22 10/26/24 History [Preservision Areds 2 Softgel] Cholecalciferol (Vitamin D3) 50 mcg PO QAM 03/16/24 10/26/24 History [Vitamin D3 (50 Mcg = 2000 Iu)] Flaxseed Oil 1,400 Mg 1,200 mg PO QAM 03/16/24 10/26/24 History Omeprazole 20 mg PO DAILY PRN 03/16/24 10/26/24 History Pyridoxine HCl (Vitamin B6) 100 mg PO QAM 03/16/24 10/26/24 History [Vitamin B-6] Sertraline HCl [Zoloft] 50 mg PO HS 03/16/24 10/26/24 History levETIRAcetam [Keppra] 500 mg PO BID 03/16/24 10/26/24 History Ibuprofen(Unknown Dose) 1 dose PO DIRECTED PRN 10/26/24 10/26/24 History Tylenol (Unknown Dose) 1 dose PO DIRECTED PRN 10/26/24 10/26/24 History Allergies Allergy/AdvReac Type Severity Reaction Status Date / Time No Known Allergies Allergy Verified 10/26/24 16:07 Surgical - Exam - General no distress, no pain - Eyes normal ocular movement, no pale - ENT normal nares, normal mucosa - Respiratory normal expansion, normal respiratory effort - Abdomen Abdomen: soft, non tender, no distended - Psychiatric oriented to time, oriented to person Assessment and Plan Assessment: OR for robotic simple prostatectomy
[~2024-10-30 09:22] MED LIST: HYDROmorphone 0.5 MG/0.5 ML SYRINGE IVP PRN
[2024-10-30] MEDS: IV FLUID CONTINUATION 1,000 ML IV ONE (10:04)
[2024-10-30] MEDS: LACTATED RINGERS 1,000 ML IV ONE (10:04)
[2024-10-30] MEDS: MIDAZOLAM 2 MG/2 ML VIAL IV PRN (10:25)
[2024-10-30] MEDS: ONDANSETRON 4 MG/2 ML VIAL IVP ONE (10:25)
[2024-10-30] MEDS: LACTATED RINGERS 1,000 ML IV SCH (10:25)
[2024-10-30] MEDS: DEXAMETHASONE SOD PHOSPHATE 4 MG/ML 1 ML VIAL IV ONE (10:25)
[2024-10-30] MEDS: HEPARIN SODIUM,PORCINE 5,000 UNIT/ML 1 ML VIAL SQ PRN (11:11)
--- NOTE | 2024-10-30 11:37 | P.ANPRN ---
Procedure Note - Anesthesia - Nerve Block Performed Bilateral Erector Spinae Single Time Out Performed: Yes Date of Procedure: 10/30/24 Procedure Start Time: Procedure Stop Time: :39 Indication: Acute Post-Operative Pain, Requested by Surgeon Sedation Type: Sedate with meaningful contact maintained Preparation: Sterile Prep Position: Prone Needle Gauge: 21 Ultrasound used to visualize needle placement: Yes Ultrasound used to observe medication spread: Yes Injectate: Other (see comment) (ROPIVACAINE 0.25% 30 MLS ON EACH SIDE WITH DECADRON TOTAL OF 10 MGS) Blood Aspirated: No Pain Paresthesia on Injection Noted: No Resistance on Injection: Normal Image Stored and Saved: Yes Events: Uneventful and Well Tolerated
[2024-10-30] MEDS ORDERED: PANTOPRAZOLE 40 MG TABLET PO PRN (11:42)
[2024-10-30] MEDS ORDERED: HYDROmorphone 1 MG/ML 1 ML SYRINGE IVP PRN (11:43)
[2024-10-30] MEDS ORDERED: ONDANSETRON 4 MG/2 ML VIAL IVP PRN (11:43)
[2024-10-30] MEDS ORDERED: HYDROcodone/APAP 5-325MG 1 EACH TAB PO PRN (11:44)
[2024-10-30] MEDS ORDERED: PROPOFOL 10 MG/ML 20 ML VIAL IV ONE (11:56)
[2024-10-30] MEDS ORDERED: ROCURONIUM 10 MG/ML (5 ML VIAL) IV ONE (11:56)
[2024-10-30] MEDS ORDERED: NEOSTIGMINE 1 MG/ML 10 ML VIAL ONE (11:56)
[2024-10-30] MEDS ORDERED: MIDAZOLAM 2 MG/2 ML VIAL ONE (11:56)
[2024-10-30] MEDS ORDERED: ROPIVACAINE 5 MG/ML 30 ML VIAL ONE (11:56)
[2024-10-30] MEDS ORDERED: SUCCINYLCHOLINE CHLORIDE 200 MG/10 ML VIAL IV ONE (11:56)
[2024-10-30] MEDS ORDERED: LIDOCAINE 1% INJ 10MG/ML (20 ML MDV) ONE (11:56)
[2024-10-30] MEDS ORDERED: GLYCOPYRROLATE 0.2 MG/ML 2 ML VIAL ONE (11:56)
[2024-10-30] MEDS ORDERED: HYDROmorphone (PF) 1 MG/ML ONE (11:56)
[2024-10-30] MEDS ORDERED: fentaNYL (PF) 50 MCG/ML 2 ML AMP ONE (11:56)
[2024-10-30] MEDS: BUPIVACAINE (PF) 0.25% 30 ML VIAL SQ ONE (12:37)
--- NOTE | 2024-10-30 15:30 | P.OP ---
Date of Procedure: 10/30/24 Preoperative Diagnosis: BPH Postoperative Diagnosis: Same Procedure(s) Performed: Robotic simple prostatectomy Implants: None Anesthesia: LEXIEA Surgeon: Ayo Bass Estimated Blood Loss (ml): 300 Pathology: other (Prostate adenoma) Condition: stable Disposition: PACU Indications for Procedure: This is a 78-year-old male with history of 180 g prostate and recurrent urinary retention. Patient has had multiple episodes of urinary retention. Discussed with him given the size of his prostate option of a robotic simple prostatectomy versus HoLEP. Risk and benefit of each approach were discussed in details. He agreed to proceed with a robotic simple prostatectomy. He is aware of the risk which include but not limited to bleeding, infection, urinary incontinence, erectile dysfunction. Discussed the risk of persistent retention even with a robotic simple. Risk of injury to nearby organs was also discussed. Risk of anesthesia was also discussed with him in details. He understood all the risk and agreed to proceed Description of Procedure: After preoperative antibiotics were started, the patient was taken to the operating room. Anesthesia was induced and the patient was placed in a supine position with adequate padding of the pressure points, shoulders, back, legs and arms. He was then prepped and draped in the standard fashion. A critical pause was performed using two patient identifiers. A 16F flores catheter was placed to gravity drainage. A pneumoperitoneum was obtained using a Veress needle, after pneumoperitoneum was obtained a 8 mm camera port was placed. Under direct vision a 8mm robotic ports was placed lateral to each rectus slightly below the camera port. The left iliac fossa 8mm port was placed. The right assistant therapy aide right iliac fossa 12mm port and right paramedian 5mm portwere placed. After the patient was placed in the trendelenberg position, the robot was then docked to the 8mm robotic ports and then each robotic arm and tower was checked in relation to the patient's legs and hands to avoid inadvertent compression. The peritoneal cavity was inspected. Adhesions were taken down along the left lower quadrant and right lower quadrant. An inverted U-shaped incision began laterally to the left medial umbilical ligament and extended high across the midline to the right umbilical ligament. The limbs of the "U" extended to the level of the vasa on both sides. We next developed the preperitoneal space and the space of Retzius. Cautery was used to dissected the bladder away from the prostate, the incision was made in close proximity to the prostate, and incision was extended laterally and at this point the plane between the adenoma and the surgical capsule is identified. Patient did have mildly enlargement of the median lobe. both ureteral orifices were identified and neither was injured during the dissection . The adenoma was dissected off of the capsule by combination of blunt dissection and minimum cautery. dissection was initially started along the anterior surface and posterior surface of adenoma, and this was carried laterally. The dissection was carried to the apex, at this point the urethral- prostatic junction was visualized and the prostate was transected at the junction. Prostate adenoma was placed in an endocatch bag . A 9and 9 inch 3-0 V-Lock suture was used to anastomose the urethra and bladder, starting at the 6:00 posterior position. Mucosa was secured in every stitch, to ensure a mucosa to mucosa anastomosis. The stitch was regularly cinched and the anastomosis tightened. . The 20 Fr Flores catheter was advanced, the bladder filled, and the anastomosis was tested. Anastomsis was watertight at 150 mL. balloon was inflated to 10 mL. The surgical capsule was further closed using 3 oh V-Loc. the robot was undocked. specimen was extracted from the supraumbilical incision. The periumbilical fascia was closed with 1-0-PDS suture in figure of 8 fashion. All ports were closed with a subcuticular 4-0 monocryl and Dermabond. Sponge, instrument, and needle counts were correct at the end of the case x2. The patient tolerated the surgery well and without complication. He awoke without difficulty and was taken to the recovery room in stable condition
[2024-10-30] MEDS: KETOROLAC 15 MG/ML 1 ML VIAL IVP SCH (17:53)
[2024-10-30] MEDS: D5-0.45% NACL WITH KCL 20MEQ/L 1,000 ML IV SCH (17:53)
[2024-10-30] MEDS: HEPARIN SODIUM,PORCINE 5,000 UNIT/ML 1 ML VIAL SQ SCH (17:53)
[2024-10-30] MEDS: SERTRALINE 50 MG TAB PO SCH (21:30)
[2024-10-30] MEDS: levETIRAcetam 500 MG TAB PO SCH (21:30)
[2024-10-30] MEDS: ATORVASTATIN 40 MG TAB PO SCH (21:30)
[2024-10-31] MEDS: CHOLECALCIFEROL 25 MCG (1000 IU) TABLET PO SCH (08:21)
[2024-10-31 08:34] VITALS: RESP 18
--- NOTE | 2024-10-31 12:23 | P.DS ---
Providers Attending physician: Ayo Bass MD Primary care physician: Ajay [facility] Course: This is a 78-year-old male with history of BPH. Underwent a robotic simple prostatectomy on October 30. Please see op note dated October 30 for surgery details. Patient was admitted to the hospital postoperatively. He did well in the postoperative period. He was discharged home with a Zuniga catheter catheter on postop day #1. At time of discharge he was tolerating a diet, ambulating, pain was controlled Plan - Discharge Summary Discharge Rx Participant: Yes New Discharge Prescriptions: No Action Atorvastatin [Lipitor] 40 mg PO HS Cholecalciferol (Vitamin D3) [Vitamin D3 (50 Mcg = 2000 Iu)] 50 mcg PO QAM Flaxseed Oil 1,400 Mg 1,200 mg PO QAM Ibuprofen(Unknown Dose) 1 dose PO DIRECTED PRN PRN Reason: Pain Vit C/E/Zn/Coppr/Lutein/Zeaxan [Preservision Areds 2 Softgel] 1 cap PO BID Tamsulosin [Flomax] 0.4 mg PO QAM Omeprazole 20 mg PO DAILY PRN PRN Reason: acid reflux Sertraline HCl [Zoloft] 50 mg PO HS Pyridoxine HCl (Vitamin B6) [Vitamin B-6] 100 mg PO QAM levETIRAcetam [Keppra] 500 mg PO BID Tylenol (Unknown Dose) 1 dose PO DIRECTED PRN PRN Reason: Pain Discharge Medication List Atorvastatin [Lipitor] 40 mg PO HS 09/19/22 [History] Tamsulosin [Flomax] 0.4 mg PO QAM 09/19/22 [History] Vit C/E/Zn/Coppr/Lutein/Zeaxan [Preservision Areds 2 Softgel] 1 cap PO BID 09/19/22 [History] Cholecalciferol (Vitamin D3) [Vitamin D3 (50 Mcg = 2000 Iu)] 50 mcg PO QAM 03/16/24 [History] Flaxseed Oil 1,400 Mg 1,200 mg PO QAM 03/16/24 [History] Omeprazole 20 mg PO DAILY PRN 03/16/24 [History] Pyridoxine HCl (Vitamin B6) [Vitamin B-6] 100 mg PO QAM 03/16/24 [History] Sertraline HCl [Zoloft] 50 mg PO HS 03/16/24 [History] levETIRAcetam [Keppra] 500 mg PO BID 03/16/24 [History] Ibuprofen(Unknown Dose) 1 dose PO DIRECTED PRN 10/26/24 [History] Tylenol (Unknown Dose) 1 dose PO DIRECTED PRN 10/26/24 [History]
[2024-10-31 14:03] VITALS: BP 104/55; PULSE 54; TEMP 98
== END 2024-10-31 15:43 | disposition home or self-care (01) ==
LOC: OR 09:22 → 4SSUR 16:46 → OR 10-31 15:43
PROVIDERS: ATTEND Urology
DX: N40.0 Benign prostatic hyperplasia without lower urinary tract symptoms (principal); K21.9 Gastro-esophageal reflux disease without esophagitis; E78.00 Pure hypercholesterolemia, unspecified; M19.90 Unspecified osteoarthritis, unspecified site; G47.33 Obstructive sleep apnea (adult) (pediatric); G40.909 Epilepsy, unspecified, not intractable, without status epilepticus; Z98.890 Other specified postprocedural states; Z90.49 Acquired absence of other specified parts of digestive tract; Z96.652 Presence of left artificial knee joint; Z87.891 Personal history of nicotine dependence; Z80.3 Family history of malignant neoplasm of breast; Z82.3 Family history of stroke; Z79.02 Long term (current) use of antithrombotics/antiplatelets; Z79.1 Long term (current) use of non-steroidal anti-inflammatories (NSAID); Z79.899 Other long term (current) drug therapy
CPT/HCPCS: 64999; 86900; 86901; 86850; 88307; 55867; J2250; J0330; J1644 ×2; J1100; J2710; J0690; J2405; J2003; J3010; J1171; J2795; J1885 ×2; J2704; J0665; J1596